=== PATIENT | male | born 1960 | race Caucasian/White ===

== ENCOUNTER 2019-07-08 09:13 | Outpatient (CLI) | payer OTHER, SELFPAY ==
--- NOTE | ~2019-07-08 | XR_ITS ---
EXAMINATION: XR shoulder RT min 2V, XR humerus RT EXAM DATE: 07/08/2019 09:46 INDICATION: No known recent injury provided at this time. Pain of the right shoulder, humerus. TECHNIQUE: The following right shoulder projections obtained: frontal projection with internal rotati on, frontal projection with external rotation, Grashey, and scapular Y view (4+ views). Orthogonal p rojections right humerus. There are no prior studies for comparison. FINDINGS: No evidence of right shoulder rotator cuff calcific tendinosis. There is mild glenohumer al, mild to moderate acromioclavicular joint primary osteoarthritis. There are no acute fractures or dislocations identified. There is no subcutaneous gas. The soft tissue is unremarkable. There are no radiopaque foreign bodies. Humerus unremarkable. IMPRESSION: Mild to moderate right acromioclavicular osteoarthritis. Reviewed, dictated and finalized at location A. CONSULTANT IMPRESSION: Mild to moderate right acromioclavicular osteoarthritis.
== END 2019-07-08 09:14 | disposition home or self-care (01) ==
LOC: CHSIMG 09:14
PROVIDERS: PCP Internal Medicine; Visit Provider Internal Medicine
DX: M79.621 Pain in right upper arm (principal); M25.511 Pain in right shoulder
CPT/HCPCS: 73030; 73060

== ENCOUNTER 2019-07-14 07:40 | Outpatient (RCR) | payer OTHER, SELFPAY ==
--- NOTE | 2019-07-14 08:15 | PTOPEVAL ---
Thank you for referring this patient to [facility]. Please review, sign, date and return this plan of care [facility]. I agree with and certify that the following plan of care is medically necessary. Referring Physician Date Admitting Provider: Attending Provider: Abdulaziz Osborne MD Referring Provider: *PT Outpatient Evaluation Start: 07/14/19 07:05 Freq: Status: Active Protocol: Document 07/14/19 07:05 Bean (Rec: 07/14/19 08:00 Bean [id number]) Therapy Assessment Status Assessment Status Assessment Status Evaluation Evaluation Information Problem Diagnosis R shoulder pain Onset 07/05/19 Subjective Information patient reports he has pain in Query Text:As Reported By Patient/ the R shoulder. he reports he Family has increased pain mostly with reaching activities away from his body. he reports the pain is mostly located to the R deltoid area. he reports the greatest pain with reaching out to his side, above his head, and behind his back. he reports the pain will be a quick burning type pain and then it will go away. he reports pain less than 30 seconds this date. he reports the pain has been going on for several weeks. he reports the pain has really been affecting his ability to sleep and get to sleep. Prior Level of Function Comments Additional Prior Level of Function pt reports he has been having Comments pain for 3-4 weeks. he reports he is retired from the [employer] [place]. 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 Pain Assessment Timing of Pain Assessment Timing of Pain Assessment Assessment Pain Scale Pain Scale Used Numeric (1 - 10) Self Report Pain Assessment Right Shoulder(s) Reported Pain Level 0 Pain Description Burning,Sharp Pain Frequency Acute,Intermittent Current Pain Intensity 0 Lowest Pain Intensity 0 Greatest Pain Intensity 5 Pain Aggravating Factors Lifting,Prolonged Position, Other Pain Aggravating Factors Other Pain Aggravating Factors sleeping Pain Score Pain Score 0: Self Report Upper Extremity Range
--- NOTE | 2019-08-07 17:06 | PCPTNOTE ---
08/07/19 - patient called and cancelled therapy visit this date. JTF
== END 2019-08-14 17:00 | disposition home or self-care (01) ==
LOC: CHSPT 07:40
PROVIDERS: PCP Internal Medicine; Visit Provider Internal Medicine
DX: M25.511 Pain in right shoulder (principal)
CPT/HCPCS: 97014; 97110; 97161; G0283

== ENCOUNTER 2019-07-16 21:18 | Inpatient (IN) | payer OTHER, SELFPAY ==
--- NOTE | ~2019-07-16 | XR_ITS ---
EXAMINATION: XR chest 2V DATE: 07/16/2019 21:53 INDICATION: Generalized chest tightness TECHNIQUE: PA and lateral views of the chest are obtained. COMPARISON: 02/18/2015 FINDINGS: The lungs are free of acute opacities. There is chronic scarring in the right midlung zone. There are also chronic reticular opacities, consistent with chronic interstitial lung disease. There is no pleural effusion or pneumothorax. The cardiomediastinal silhouette is normal. There is mild th oracic spondylosis. Cholecystectomy clips are noted in the right upper quadrant. IMPRESSION: 1. No acute cardiopulmonary abnormality. Reviewed, dictated and finalized at location A. ERCIAL TRAILER TRUCK DRIVER
[2019-07-16 21:18] VITALS: BP 181/93; PULSE 114; RESP 18; TEMP 36.7; O2SAT 94
--- NOTE | 2019-07-16 21:24 | ECG_ITS ---
Measurements Intervals [place] Rate: 102 P: [place]: 0 QRS: 37 QRSD: 82 T: 3 QT: 322 QTc: 420 Interpretive Statements ATRIAL FIBRILLATION WITH RAPID VENTRICULAR RESPONSE RSR' IN V1 OR V2, CONSIDER RIGHT VENTRICULAR HYPERTROPHY OR RIGHT VCD BORDERLINE ST-T WAVE ABNORMALITY- INFERIOR LEADS BASELINE ARTIFACT- I, II, III, AVR, AVL, AVF, V1 ABNORMAL ECG Electronically Signed On 07-17-2019 7:07:35 PRODUCTION COOK by Cash Stafford D.O.
--- NOTE | 2019-07-16 21:26 | ED.CHESTPAIN ---
HPI - Chest Pain General Chief Complaint: Chest Pain Stated Complaint: chest pain Time Seen by Provider: 07/16/19 21:26 Source: patient and RN notes reviewed Mode of arrival: ambulatory Limitations: no limitations History of Present Illness MD complaint: chest discomfort Pertinent past history: coronary artery disease Onset (ago): week(s) (2) Timing of current episode: episodic Prior episodes: Yes Onset: during rest Pain location: substernal Pain radiation: none Severity: moderate Quality: burning Relieving factors: nothing Exacerbating factors: nothing Treatment prior to arrival: aspirin Risk Factors Coronary artery disease risk factors: family history of CAD before age 50 Related Data Home Medications Medication Instructions Recorded Confirmed bupropion HCl 150 mg PO BID 07/16/19 07/16/19 esomeprazole magnesium 40 mg PO DAILY 07/16/19 07/16/19 methylprednisolone PO USEASDIRECTD 07/16/19 metoprolol succinate 25 mg PO DAILY 07/16/19 07/16/19 simvastatin 40 mg PO DAILY 07/16/19 07/16/19 Allergies Allergy/AdvReac Type Severity Reaction Status Date / Time Penicillins Allergy Rash Verified 07/16/19 21:45 Review of Systems Cardiovascular: Cardiovascular: Denies diaphoresis, Reports rapid heart rate, Denies radiating jaw, neck or arm pain and Denies dyspnea Gastrointestinal: Gastrointestinal: Denies nausea and Denies vomiting Musculoskeletal: Musculoskeletal: Reports no additional musculoskeletal complaints PMFSH Past Medical History Medical History (Updated 07/16/19 @ 22:14 by Umberto Lainez MD) Coronary artery disease Surgical History Surgical History (Updated 07/16/19 @ 22:04 by Umberto Lainez MD) History of cholecystectomy History of coronary artery stent placement Family History Family History (Updated 07/16/19 @ 22:04 by Umberto Lainez MD) Father Acute myocardial infarction, Onset Age: 47 Social History Social History (Updated 07/16/19 @ 22:06 by Umberto Lainez MD) Smoking packs per day: 1 Smoking cigarettes per day: 20.0 Smoking status: Current every day smoker Tobacco type: cigarettes Alcohol intake: current Alcohol use details: Occaisional Substance use: never Gender identity (if verbalized by the patient): Male Exam Const: General: healthy appearing, no acute distress and alert Nutritional Appearance: well nourished Orientation/consciousness: patient oriented x3 HENMT: Head: normal to inspection Ears: external ears normal Eyes: Conjunctivae: conjunctivae normal Pupils: Equal, round and reactive pupils present EOM: EOMs intact bilaterally Neck: Neck: normal visual inspection Resp: Effort & Inspection: normal respiratory effort Auscultation: clear to auscultation bilaterally Cardio: Rate: tachycardic Rhythm: abnormal rhythm irregularly irregular GI: Auscultation: normal bowel sounds Back/Spine/Pelvis: Cervical Spine: cervical ROM normal Thoracic/Lumbar Spine: thoraco-lumbar ROM normal Skin: General skin exam: normal color Rashes: no rashes Neuro: General: patient oriented x3, moves all extremities and no focal motor deficits Speech: normal speech Extrem: General: normal to inspection and no clubbing, cyanosis or edema Psych: Appearance: grossly normal and well kempt Mental Status: mental status grossly normal Affect: normal affect Attitude: cooperative Thought content: Yes Normal thought content present Course Course Emergency Course: Patient given 20 mg of Cardizem IV push. Heart rate dropped into the 80s. Remained atrial fibrillation. Started on Cardizem drip at 10 mg an hour. Vital Signs Vital signs: Vital Signs Temperature 36.7 C 07/16/19 21:18 Pulse Rate 114 H 07/16/19 21:18 Respiratory Rate 18 07/16/19 21:18 Blood Pressure 181/93 H 07/16/19 21:18 Pulse Oximetry 94 07/16/19 21:18 Temperature 36.7 C 07/16/19 21:18 Pulse Rate 114 H 07/16/19 21:18 Respiratory Rate 18 07/16/19 21:18 Blood P
[2019-07-16 21:43] LABS: Basophils Absolute Auto 0.09 K/mm3 (0.00-0.10); Basophils Percent Auto 0.5 % (0.0-1.0); Eosinophils Absolute Auto 0.11 K/mm3 (0.02-0.50); Eosinophils Percent Auto 0.6 % (1.0-6.0); Hematocrit 44.5 % (40.0-54.0); Hemoglobin 15.1 g/dL (14.0-18.0); Immature Granulocyte Absolute 0.14 K/mm3 (0.00-0.00); Immature Granulocyte Percent A 0.8 % (0.0-0.0); Lymphocytes Absolute Auto 4.34 K/mm3 (1.10-4.50); Lymphocytes Percent Auto 23.3 % (18.0-42.0); Mean Corpuscular HGB Conc 33.9 g/dL (32.0-36.0); Mean Corpuscular Hemoglobin 31.9 pg (27.0-31.0); Mean Corpuscular Volume 94.1 fL (78.0-102.0); Mean Platelet Volume 9.7 fl (8.7-11.0); Monocytes Absolute Auto 1.06 K/mm3 (0.10-0.90); Monocytes Percent Auto 5.7 % (2.0-11.0); Neutrophils Absolute Auto 12.9 K/mm3 (1.7-7.2); Neutrophils Percent Auto 69.1 % (50.0-70.0); Platelet Count Result 330 K/mm3 (150-420); Red Blood Count 4.73 M/mm3 (4.70-6.10); Red Cell Distribution Width 12.9 % (11.6-14.4); White Blood Count 18.6 K/mm3 (4.8-10.8)
--- NOTE | 2019-07-16 21:51 | PC.NURSE ---
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
[2019-07-16 21:54] LABS: Prothrombin Time 10.2 Seconds (9.64-11.0)
[2019-07-16 21:59] LABS: Alanine Aminotransferase 38 U/L (16-63); Albumin Level 4.3 g/dL (3.4-5.0); Alkaline Phosphatase 65 U/L (46-116); Anion Gap 18.5 mmol/L (7-16); Aspartate Amino Transferase 27 U/L (15-37); Bilirubin,Total 0.2 mg/dL (0.00-1.00); Blood Urea Nitrogen 21 mg/dL (7-18); Calcium 8.8 mg/dL (8.5-10.1); Carbon Dioxide 23 mmol/L (21-32); Chloride 107 mmol/L (98-108); Estimated CRCL calculation 70 ml/min; Estimated Glomerular Filt Rate > 60; Glucose 107 mg/dL (70-99); Osmolality Calculated 303 mOsm/kg (285-295); Potassium 3.5 mmol/L (3.5-5.1); Sodium 145 mmol/L (136-145)
[2019-07-16 22:00] LABS: Troponin I < 0.02 ng/mL (0.00-0.056)
--- NOTE | 2019-07-16 22:10 | PC.NURSE ---
Verbal order Dr Lainez Diltiazem gtt at 10mg/hr. Order entered as 1 mg/hr. Dr Lainez aware, states he will change the order.
[2019-07-16 22:13] VITALS: BP 134/62; PULSE 92; RESP 18; O2SAT 95
--- NOTE | 2019-07-16 22:34 | PC.NURSE ---
Pt states chest burning remains 06/13. Diltiazem gtt continues to infuse at 10mg/hr. HR 86 afib, BP 134/72.
--- NOTE | 2019-07-16 22:38 | PC.NURSE ---
Room assignment received from 2nd floor charge nurse. Will call back at 2300 to give report to oncoming night RN.
[2019-07-16 22:39] VITALS: BP 134/72; PULSE 89; RESP 18; O2SAT 93
[2019-07-16 22:40] LABS: Thyroid Stimulating Hormone 4.04 uIU/mL (0.36-3.74)
[2019-07-16 22:43] LABS: Magnesium 1.6 mg/dL (1.8-2.4)
[2019-07-16 23:02] VITALS: BP 122/71; PULSE 84; RESP 18; O2SAT 95
[2019-07-16 23:54] VITALS: BMI 29.2
[2019-07-17 00:03] VITALS: BP 135/62; PULSE 75; RESP 18; TEMP 36.4; O2SAT 94
[2019-07-17 04:07] VITALS: BP 104/51; PULSE 76; RESP 16; TEMP 36.7; O2SAT 95
[2019-07-17 07:55] VITALS: BP 141/74; PULSE 72; PULSE 80; RESP 18; TEMP 36.3; O2SAT 98
[2019-07-17] MEDS: NICOTINE (*PBKC) 21 MG PATCH 1 PATCH TRANSDERM (09:20)
[2019-07-17 09:21] VITALS: PULSE 86
[2019-07-17] MEDS: PANTOPRAZOLE 40 MG TABLET PO (09:21)
[2019-07-17] MEDS: METOPROLOL SUCCINATE EXT REL 25 MG TABCR PO (09:21)
[2019-07-17] MEDS: MAGNESIUM OXIDE 400 MG TABLET PO (09:22)
[2019-07-17] MEDS: APIXABAN 2.5 MG TABLET 5 MG PO (09:22)
[2019-07-17] MEDS: SIMVASTATIN 10 MG TABLET 40 MG PO (09:22)
--- NOTE | 2019-07-17 11:30 | PM.IMHP ---
H&P: HPI History of Present Illness Chief complaint: chest pain Narrative: Rui Sanders is a 59 year old male that presented to the ED yesterday with complaints of chest pain and burning sensation in his throat. patient has a past medical history of CAD, COPD, hyperlipidemia and GERD. According to patient for the past couple weeks he has been having a intermittent burning sensation in the center of his chest. Patient does have a history of acid reflux but noted that it did not feel like his acid reflux. Patient also noted that is seen to flare up with movement. According to him yesterday the burning sensation worsened. He was sitting up in his bed when it occurred. He noted that he had to take a pillow and pushing against his chest and lean over the bed in the bed the position to relieve the pain. His discovered him and brought him to the emergency room. While in the emergency room a EKG was completed it showed that he was in AFib with RVR. this patient does not have a history of AFib. Patient was started on Cardizem in the ED and Eliquis his vital signs were 36.3, 72, 18, 98% on room air and 141/74. today patient's AFib is rates 70 and 90. Patient will discharge home today with Cardizem 100 mg p.o. daily and Eliquis. Dr. Montes De Oca his histology teacher was notified I will fax patient's H&P and discharge with EKG to his office. He does have an appointment with Dr. Montes De Oca tomorrow. Patient noted that chest pains and burning sensation in his chest has resolved since admission. Patient able to tolerate all meals , slept well and ambulate at baseline. Patient denies SOB, CP, palpitation, extremity numbness, lightheadness, dizziness, constipation, diarrhea, or chills or fever. Patient agree that they are ready for discharge and discharge plan. Review of Systems Constitutional: Constitutional: Reports no additional constitutional complaints, Denies fatigue, Denies headache(s) and Denies weakness Cardiovascular: Cardiovascular: Denies chest pain, Denies chest pain at rest, Denies chest pain with activity, Denies lightheadedness, Denies dyspnea on exertion and Denies orthopnea Respiratory: Respiratory: Reports no additional respiratory complaints, Denies chest congestion, Denies cough, Denies pain on inspiration, Denies dyspnea and Denies dyspnea on exertion Gastrointestinal: Gastrointestinal: Reports no additional gastrointestinal complaints, Denies dyspepsia, Denies heartburn, Denies diarrhea, Denies nausea and Denies vomiting Genitourinary: Genitourinary: Reports no additional male genitourinary complaints Integumentary/Breasts: Skin/Breast: Reports system reviewed and no additional complaints, except as docu Neurologic: Reports system reviewed and no additional complaints, except as documented [facility] Past Medical History Medical History (Updated 07/17/19 @ 11:45 by STEVE Church) COPD (chronic obstructive pulmonary disease) Coronary artery disease Tobacco dependence Surgical History Surgical History (Updated 07/16/19 @ 22:04 by Umberto Lainez MD) History of cholecystectomy History of coronary artery stent placement Family History Family History (Updated 07/17/19 @ 00:04 by Shea Flores RN) Father Acute myocardial infarction, Onset Age: 47 Diabetes mellitus Social History Social History (Updated 07/16/19 @ 22:06 by Umberto Lainez MD) Smoking packs per day: 1 Smoking cigarettes per day: 20.0 Years smoked: 40 Smoking pack-years: 40.00 Smoking status: Heavy tobacco smoker Tobacco type: cigarettes Second hand tobacco smoke exposure: No Alcohol intake: current Drinks per week: 14 Alcohol use details: Occaisional Substance use: never Substance use type: does not use Gender identity (if verbalized by the patient): Male Spiritual care concerns: No Agree to blood products: No Meds Home Medications and Allergies Home Medications Medication Instructions Record
--- NOTE | 2019-07-17 11:51 | PM.DS ---
DS: Diagnosis Discharge Diagnosis (1) Atrial fibrillation: Qualifiers: Atrial fibrillation type: paroxysmal Qualified Code(s): I48.0 - Paroxysmal atrial fibrillation Code(s): I48.91 - Unspecified atrial fibrillation Status: Acute Assessment and Plan: newly diagnosed AFib - while in ER patient display AFib with RVR controlled AFib -patient will discharge with Cardizem 180 mg daily and Eliquis - patient educated on increased risk for clots and signs and symptoms PE - will fax patient's hospitalization records to Dr. Montes De Oca at [phone] (2) GERD (gastroesophageal reflux disease): Code(s): K21.9 - Gastro-esophageal reflux disease without esophagitis Status: Acute Assessment and Plan: continue omeprazole (3) Coronary artery disease: Code(s): I25.10 - Atherosclerotic heart disease of [place] coronary artery without angina pectoris Status: Acute Assessment and Plan: - follow-up with Dr. Montes De Oca tomorrow - continue metoprolol - continue statins (4) Hyperlipidemia: Code(s): E78.5 - Hyperlipidemia, unspecified Status: Acute Assessment and Plan: - continue statins - follow-up with PCP (5) COPD (chronic obstructive pulmonary disease): Code(s): J44.9 - Chronic obstructive pulmonary disease, unspecified Status: Acute Assessment and Plan: - patient is currently smoking - patient primary care physician has prescribed him inhalers per patient he does not need any of the inhalers because he does not have shortness of breath. - patient educated rescue inhaler and use of when needed. (6) Tobacco dependence: Code(s): F17.200 - Nicotine dependence, unspecified, uncomplicated Status: Acute Assessment and Plan: patient educated on smoking cessation - patient did receive nicotine patch as an inpatient - patient refuses to use patches as outpatient DS: Summary Hospital Course Hospital Course: Rui Sanders is a 59 year old male that presented to the ED yesterday with complaints of chest pain and burning sensation in his throat. patient has a past medical history of CAD, COPD, hyperlipidemia and GERD. According to patient for the past couple weeks he has been having a intermittent burning sensation in the center of his chest. Patient does have a history of acid reflux but noted that it did not feel like his acid reflux. Patient also noted that is seen to flare up with movement. According to him yesterday the burning sensation worsened. He was sitting up in his bed when it occurred. He noted that he had to take a pillow and pushing against his chest and lean over the bed in the bed the position to relieve the pain. His discovered him and brought him to the emergency room. While in the emergency room a EKG was completed it showed that he was in AFib with RVR. this patient does not have a history of AFib. Patient was started on Cardizem in the ED and Eliquis his vital signs were 36.3, 72, 18, 98% on room air and 141/74. today patient's AFib is rates 70 and 90. Patient will discharge home today with Cardizem 100 mg p.o. daily and Eliquis. Dr. Montes De Oca his technical marketing engineer was notified I will fax patient's H&P and discharge with EKG to his office. He does have an appointment with Dr. Montes De Oca tomorrow. Patient noted that chest pains and burning sensation in his chest has resolved since admission. Patient able to tolerate all meals , slept well and ambulate at baseline. Patient denies SOB, CP, palpitation, extremity numbness, lightheadness, dizziness, constipation, diarrhea, or chills or fever. Patient agree that they are ready for discharge and discharge plan. Time spent discussing smoking cessation with patient: 3 to 10 minutes Time Spent with Patient Time attestation: Total time spent providing and/or coordinating discharge services:60 Exam Const: General: cooperative, healthy appearing, comfortable and no acu
--- NOTE | 2019-07-21 13:37 | PC.NURSE ---
Discharge call back [phone] number no longer inservice.
== END 2019-07-17 11:45 | disposition home or self-care (01) | DRG 308 ==
LOC: CHSED 22:14 → CHS2ND 22:40
PROVIDERS: Admitting Provider Emergency Medicine; Emergency Provider Emergency Medicine; PCP Internal Medicine; Visit Provider Emergency Medicine
DX: I48.0 Paroxysmal atrial fibrillation (principal); J18.9 Pneumonia, unspecified organism; J44.1 Chronic obstructive pulmonary disease with (acute) exacerbation; K21.9 Gastro-esophageal reflux disease without esophagitis; I25.10 Atherosclerotic heart disease of native coronary artery without angina pectoris; E78.5 Hyperlipidemia, unspecified; F17.210 Nicotine dependence, cigarettes, uncomplicated
CPT/HCPCS: 36415; 71046; 80053; 83735; 84443; 84484; 85025; 85610; 93005; 96365; 96366; 99284; 99285; A9270

== ENCOUNTER 2019-10-31 08:14 | Outpatient (CLI) | payer OTHER, SELFPAY ==
--- NOTE | ~2019-10-31 | XR_ITS ---
EXAMINATION: XR barium swallow DATE: 10/31/2019 13:58 INDICATION: Dysphagia. Gastroesophageal reflux disease. TECHNIQUE: The patient drank thick barium, gas-producing crystals, and thin barium. Fluoroscopic spot radiographs of the hypopharynx and esophagus were obtained. A total of 1253 fluoroscopic images were recorded. Fluoroscopy exposure time was 1.8 minutes. COMPARISON: None. FINDINGS: The pharynx is symmetric and without evidence of mass lesion or mucosal irregularity. The e sophagus is normal without mass or stricture. Esophageal motility is normal. There is no hiatal herni a. There was no gastroesophageal reflux with provocative maneuvers. IMPRESSION: 1. Normal esophagram. Reviewed, dictated and finalized at location A. IMPRESSION: 1. Normal esophagram.
== END 2019-10-31 08:15 | disposition home or self-care (01) ==
PROVIDERS: PCP Internal Medicine; Visit Provider Internal Medicine
DX: R13.10 Dysphagia, unspecified (principal)
CPT/HCPCS: 74220

== ENCOUNTER 2020-01-06 08:20 | Outpatient (CLI) | payer OTHER, SELFPAY ==
--- NOTE | ~2020-01-06 | XR_ITS ---
EXAMINATION: XR chest 2V DATE: 01/06/2020 08:46 INDICATION: Chronic cough TECHNIQUE: PA and lateral views of the chest were obtained. COMPARISON: Chest radiograph dated 07/16/[address] dated 05/14/2019 FINDINGS: Hyperexpansion of lungs with architectural distortion increased lucency at the apices consistent with emphysema better appreciated on prior CT. Unchanged linear discoid atelectasis/scarring along the ri ght minor fissure. No significant change in mild peripheral reticular opacities most prominent at the right upper and right lower lung zones likely related to chronic interstitial lung disease. No new a irspace opacities, pleural effusion or pneumothorax. The cardiomediastinal silhouette is normal. Calc ified right hilar and mediastinal lymph nodes consistent with old granulomatous disease. Cholecystect gregory clips in the upper abdomen. Mild scattered degenerative skeletal changes. IMPRESSION: 1. Emphysema and mild chronic interstitial fibrosis. No acute cardiopulmonary disease. Reviewed, dictated and finalized at location A. IMPRESSION: 1. Emphysema and mild chronic interstitial fibrosis. No acute cardiopulmonary d isease.
== END 2020-01-06 08:21 | disposition home or self-care (01) ==
PROVIDERS: PCP Internal Medicine; Visit Provider Internal Medicine Pulmonary Disease
DX: J44.9 Chronic obstructive pulmonary disease, unspecified (principal); J84.112 Idiopathic pulmonary fibrosis
CPT/HCPCS: 71046; 94060; 94726; 94729

== ENCOUNTER 2020-05-20 10:45 | Outpatient (CLI) | payer OTHER, SELFPAY ==
[2020-05-21 20:00] LABS: SARS-CoV-2 RNA PCR Negative
== END 2020-05-20 10:46 | disposition home or self-care (01) ==
LOC: CHSLAB 10:46
PROVIDERS: PCP Internal Medicine; Visit Provider Internal Medicine
DX: Z20.828 Contact with and (suspected) exposure to other viral communicable diseases (principal)
CPT/HCPCS: 87635; C9803; U0003

== ENCOUNTER 2020-11-15 06:59 | Outpatient (CLI) | payer OTHER, SELFPAY ==
[2020-11-15 08:25] LABS: Alanine Aminotransferase 39 U/L (16-63); Albumin Level 3.7 g/dL (3.4-5.0); Alkaline Phosphatase 84 U/L (46-116); Anion Gap 12 mmol/L (8-16); Aspartate Amino Transferase 24 U/L (15-37); Bilirubin,Total 0.4 mg/dL (0.00-1.00); Blood Urea Nitrogen 16 mg/dL (7-18); Calcium 9.5 mg/dL (8.5-10.1); Carbon Dioxide 26 mmol/L (21-32); Chloride 105 mmol/L (98-108); Cholesterol 128 mg/dL (0-200); Estimated Glomerular Filt Rate > 60; Glucose 108 mg/dL (70-99); HDL Direct 24 mg/dL (40-60); LDL Cholesterol Calculated 68 mg/dL (<130); Osmolality Calculated 298 mOsm/kg (285-295); Potassium 3.3 mmol/L (3.5-5.1); Sodium 143 mmol/L (136-145); Total Protein 6.7 g/dL (6.4-8.2); Triglycerides 179 mg/dL (0-150)
== END 2020-11-15 07:00 | disposition home or self-care (01) ==
PROVIDERS: PCP Internal Medicine
DX: E78.00 Pure hypercholesterolemia, unspecified (principal); J44.9 Chronic obstructive pulmonary disease, unspecified; J84.10 Pulmonary fibrosis, unspecified; R91.1 Solitary pulmonary nodule; Z72.0 Tobacco use
CPT/HCPCS: 36415; 80053; 80061

== ENCOUNTER 2020-11-30 09:50 | Outpatient (CLI) | payer OTHER, SELFPAY ==
--- NOTE | 2020-12-01 14:41 | WPDPFTINT ---
PFT Procedure Performed PFT Procedure Performed Spirometry with Pre/Post Bronchodilator Plethysmography (Lung Vol) Diffusing Cap (DLCO) Flow Vol Loop PFT Interpretation DOS: 11/30/2020 REQUESTING: Karli Aguilera MD REASON FOR TESTING: COPD, Pulmonary fibrosis PULMONARY FUNCTION TESTS Results are reliable and reproducible. Spirometry: FEV1 is 87% predicted, 2.65 L, normal. FVC is 107% predicted, normal. The FEV1/FVC ratio is reduced 64% predicted. The [id number]% is 38% predicted with a 21% increase after bronchodilator administration. There is no increase in the FEV1 or FVC after bronchodilator administration. Lung volumes: Total lung capacity is 94% predicted, normal. Residual volume is 66% predicted. RV/TLC is 26%, no air trapping. Airway resistance is normal. Diffusion: DLCO 53% predicted, moderately decreased. Flow volume loop: Mild scooping of expiratory limb. IMPRESSION: This full pulmonary function test shows a mild obstructive ventilatory impairment without a significant response to bronchodilator. Normal lung volumes. Moderate diffusion impairment. There is mild scooping of the expiratory limb which is consistent with an obstructive process. The lack of response to bronchodilators should not preclude use if clinically indicated. Cortney Oropeza MD
== END 2020-11-30 09:51 | disposition home or self-care (01) ==
LOC: CHSCARD 09:55
PROVIDERS: PCP Internal Medicine
DX: J44.9 Chronic obstructive pulmonary disease, unspecified (principal)
CPT/HCPCS: 94060; 94726; 94729

== ENCOUNTER 2020-12-13 08:07 | Outpatient (CLI) | payer OTHER, SELFPAY ==
--- NOTE | ~2020-12-13 | CT_ITS ---
EXAMINATION: CT diagnostic chest wo con EXAM DATE: 12/13/2020 08:28 INDICATION: Interstitial lung disease, COPD, chronic cough. TECHNIQUE: Spiral CT of the chest without contrast. Axial, coronal and sagittal images of the chest were reviewed. Coronal maximum intensity pixel images of chest reviewed. The dose-length product ( DLP) for this examination was 333.63 mGy-cm. The exposure was tailored according to patient size (au to mA exposure control), and iterative reconstruction (ASIR) was used as additional dose reduction te chnique. Comparison is made to prior examination from 05/14/2019. FINDINGS: There is a thin right upper lobe pleural-based opacity abutting the minor fissure, region measuring about 2.7 cm in diameter by 6 mm in thickness, with evidence of volume loss and spiculation s, stable and therefore likely scarring. There are no suspicious lung opacities. There is upper lobe peripheral predominant interstitial lung disease, some interspersed groundglass opacities and mild ho neycombing, stable or with minimal progression. Some emphysema and hyperinflation. There are no pleu ral or pericardial effusions. Tracheobronchial tree is patent. Right lower paratracheal lymph nod e measuring 1.5 x 0.9 cm unchanged, probably reactive. There is no pneumothorax. Heart normal in s ize. There is moderate coronary arterial calcification, arterial sclerosis. There are cholecystect gregory clips. There is mild to moderate thoracic spondylosis without osteoblastic or osteolytic lesions identified. IMPRESSION: 1. Moderate interstitial lung disease, stable or with minimal progression. 2. Stable pleural-based right upper lobe opacity likely postinfectious. 3. Emphysema and hyperinflation. Reviewed, dictated and finalized at location A.
== END 2020-12-13 08:08 | disposition home or self-care (01) ==
LOC: CHSIMG 08:09
PROVIDERS: PCP Internal Medicine; Visit Provider Internal Medicine Pulmonary Disease
DX: J44.9 Chronic obstructive pulmonary disease, unspecified (principal); R91.1 Solitary pulmonary nodule
CPT/HCPCS: 71250

== ENCOUNTER 2021-03-17 13:15 | Outpatient (CLI) | payer OTHER, SELFPAY ==
[2021-03-17 13:40] LABS: Basophils Absolute Auto 0.09 K/mm3 (0.00-0.10); Basophils Percent Auto 0.7 % (0.0-1.0); Eosinophils Absolute Auto 0.18 K/mm3 (0.02-0.50); Eosinophils Percent Auto 1.5 % (1.0-6.0); Hematocrit 40.7 % (40.0-54.0); Immature Granulocyte Absolute 0.05 K/mm3 (0.00-0.00); Immature Granulocyte Percent A 0.4 % (0.0-0.0); Lymphocytes Absolute Auto 3.43 K/mm3 (1.10-4.50); Lymphocytes Percent Auto 28.2 % (18.0-42.0); Mean Corpuscular HGB Conc 34.4 g/dL (32.0-36.0); Mean Corpuscular Hemoglobin 30.9 pg (27.0-31.0); Mean Corpuscular Volume 89.8 fL (78.0-102.0); Mean Platelet Volume 10.2 fl (8.7-11.0); Monocytes Absolute Auto 0.79 K/mm3 (0.10-0.90); Monocytes Percent Auto 6.5 % (2.0-11.0); Neutrophils Absolute Auto 7.6 K/mm3 (1.7-7.2); Neutrophils Percent Auto 62.7 % (50.0-70.0); Platelet Count Result 320 K/mm3 (150-420); Red Blood Count 4.53 M/mm3 (4.70-6.10); Red Cell Distribution Width 12.7 % (11.6-14.4); White Blood Count 12.2 K/mm3 (4.8-10.8)
--- NOTE | 2021-03-17 13:45 | ECG_ITS ---
Measurements Intervals [place] Rate: 67 P: 60 SD: 176 QRS: 73 QRSD: 138 T: 52 QT: 419 QTc: 444 Interpretive Statements SINUS RHYTHM RIGHT BUNDLE BRANCH BLOCK ABNORMAL ECG Electronically Signed On 03-17-2021 13:44:45 CDT by Cash Stafford D.O.
[2021-03-17 13:55] LABS: Appearance Urine Clear (Clear); Bilirubin Urine Negative (Negative); Color Urine Light Yellow (Yellow); Glucose Urine UA Negative (Negative); Ketones Urine Negative (Negative); Leukocyte Esterase Ur Negative (Negative); Nitrate Urine Negative (Negative); Protein Urine Negative (Negative); Urobilinogen Urine 0.2 mg/dL (0.2-1.0)
[2021-03-17 14:02] LABS: Add Urine Microscopic? YES; Blood Urine Trace-Intact (Negative); RBC Urine 0-2 /hpf (0-2); WBC Urine None seen /hpf (0-3)
[2021-03-17 14:03] LABS: Bacteria Urine None seen /hpf; Squamous Epithelial Cell Urine Rare /hpf (Few)
[2021-03-17 14:08] LABS: Prostate Specific Antigen 0.9 ng/mL (< OR = 4.0); Thyroid Stimulating Hormone 2.49 uIU/mL (0.36-3.74); Troponin I 5.5 ng/L (0.00-60.4)
== END 2021-03-17 13:16 | disposition home or self-care (01) ==
LOC: CHSLAB 13:17
PROVIDERS: PCP Internal Medicine; Visit Provider Nuclear Medicine Nuclear Cardiology
DX: R07.9 Chest pain, unspecified (principal); Z00.00 Encounter for general adult medical examination without abnormal findings; Z12.5 Encounter for screening for malignant neoplasm of prostate
CPT/HCPCS: 36415; 81001; 84153; 84443; 84484; 85025; 93005; G0103

== ENCOUNTER 2021-03-22 07:09 | Outpatient (CLI) | payer OTHER, SELFPAY ==
[2021-03-22 07:26] LABS: Basophils Absolute Auto 0.12 K/mm3 (0.00-0.10); Basophils Percent Auto 0.9 % (0.0-1.0); Eosinophils Absolute Auto 0.19 K/mm3 (0.02-0.50); Eosinophils Percent Auto 1.4 % (1.0-6.0); Hemoglobin 13.3 g/dL (14.0-18.0); Immature Granulocyte Absolute 0.05 K/mm3 (0.00-0.00); Immature Granulocyte Percent A 0.4 % (0.0-0.0); Lymphocytes Absolute Auto 2.35 K/mm3 (1.10-4.50); Lymphocytes Percent Auto 17.5 % (18.0-42.0); Mean Corpuscular HGB Conc 34.1 g/dL (32.0-36.0); Mean Corpuscular Hemoglobin 31.3 pg (27.0-31.0); Mean Corpuscular Volume 91.8 fL (78.0-102.0); Monocytes Absolute Auto 1.06 K/mm3 (0.10-0.90); Monocytes Percent Auto 7.9 % (2.0-11.0); Neutrophils Absolute Auto 9.6 K/mm3 (1.7-7.2); Neutrophils Percent Auto 71.9 % (50.0-70.0); Platelet Count Result 276 K/mm3 (150-420); Red Blood Count 4.25 M/mm3 (4.70-6.10); Red Cell Distribution Width 12.7 % (11.6-14.4); White Blood Count 13.4 K/mm3 (4.8-10.8)
[2021-03-22 07:56] LABS: Anion Gap 13 mmol/L (8-16); Blood Urea Nitrogen 15 mg/dL (7-18); Carbon Dioxide 26 mmol/L (21-32); Chloride 103 mmol/L (98-108); Estimated Glomerular Filt Rate > 60; Glucose 118 mg/dL (70-99); Osmolality Calculated 295 mOsm/kg (285-295); Potassium 4.1 mmol/L (3.5-5.1); Sodium 142 mmol/L (136-145)
== END 2021-03-22 07:10 | disposition home or self-care (01) ==
PROVIDERS: PCP Internal Medicine
DX: E87.6 Hypokalemia (principal); E83.42 Hypomagnesemia; D72.829 Elevated white blood cell count, unspecified
CPT/HCPCS: 36415; 80048; 83735; 85025

== ENCOUNTER 2021-06-01 14:29 | Outpatient (CLI) | payer OTHER, SELFPAY ==
[2021-06-01 15:26] LABS: Influenza A QL RT-PCR Negative (Negative); Influenza B QL RT-PCR Negative (Negative); SARS-CoV-2 RNA PCR Negative (Negative)
== END 2021-06-01 14:30 | disposition home or self-care (01) ==
LOC: CHSLAB 14:32
PROVIDERS: PCP Internal Medicine; Visit Provider Internal Medicine
DX: J06.9 Acute upper respiratory infection, unspecified (principal); Z20.822 Contact with and (suspected) exposure to COVID-19
CPT/HCPCS: 87502; C9803; U0003; U0005

== ENCOUNTER 2021-06-09 10:34 | Outpatient (CLI) | payer OTHER, SELFPAY ==
--- NOTE | 2021-06-09 12:57 | WPDPFTINT ---
PFT Procedure Performed PFT Procedure Performed Spirometry with Pre/Post Bronchodilator Plethysmography (Lung Vol) Diffusing Cap (DLCO) Flow Vol Loop PFT Interpretation DOS:06/09/2021 REQUESTING: Dr Karli Aguilera REASON FOR TESTING: Shortness of breath; Prior PFT indicates the patient has pulmonary fibrosis and takes Ofev PULMONARY FUNCTION TESTS Results are reliable and reproducible. Spirometry: FEV1 prior to bronchodilator administration is 92% predicted, 2.79 L, normal. FVC is 110% predicted. The FEV1/FVC ratio is 66%, consistent with mild airflow obstruction. The JAC01-54% is decreased at 43% predicted. There is no change after bronchodilator. Lung volumes: Total lung capacity is 106% predicted, normal. There is no hyperinflation. Residual volume is 93% predicted, normal. The airway resistance is 117%. normal. Diffusion: DLCO is 51% predicted which is moderately decreased. This does not correct for alveolar volume. Flow volume loop: Normal. IMPRESSION: This pulmonary function study shows a mild decrease in FEV1% and moderate decrease in the IFH56-92% which is similar to a prior study 11/22/2020. There is no response to bronchodilator on this study. Normal lung volumes and airway resistance. The main abnormality on this study is a moderate decrease in the diffusion which does not correct for alveolar volume. Isolated decrease in diffusion can be seen in early interstitial lung disease, pulmonary vascular disease and anemia. Carboxyhemoglobin also decreases the DLCO. The patient has pulmonary fibrosis with stable diffusion impairment Compared to a prior study 11/30/2020, values are similar. The FEV1 was 87% predicted, now 92% predicted. FVC was 107%, now 110%. There was a decrease in the DCC41-34% at 38% predicted, and now the ESS22-43% is also low at 43%. On the prior study, there was a 21% increase in the UKJ48-36% and no increase in the small airways flows with bronchodilator. There is no change with bronchodilator on the current study. Total lung capacity was 94% now 106%. The DLCO was 53% now 51%, about the same. Cortney Oropeza MD
== END 2021-06-09 10:35 | disposition home or self-care (01) ==
PROVIDERS: PCP Internal Medicine; Visit Provider Internal Medicine Pulmonary Disease
DX: R06.02 Shortness of breath (principal)
CPT/HCPCS: 94060; 94726; 94729

== ENCOUNTER 2021-12-14 07:03 | Outpatient (CLI) | payer OTHER, SELFPAY ==
--- NOTE | ~2021-12-14 | CT_ITS ---
EXAMINATION: CT diagnostic chest wo con DATE: 12/14/2021 07:27 INDICATION: Solitary pulmonary nodule, interstitial lung disease TECHNIQUE: Computed tomography (CT) of the chest was performed without intravenous contrast. The dose -length product (DLP) was 385.00 mGy-cm. Automated exposure control and iterative reconstruction tech SMS G[employer] were employed. COMPARISON: 12/13/2020, 05/14/2019 FINDINGS: There is moderate emphysema. There are stable, widespread subpleural reticular and groundgl ass opacities with an upper lung zone predominance. There are is an area of chronic thickening of the minor fissure without significant change. Calcified pulmonary nodules and calcified right hilar and mediastinal lymph nodes are consistent with old granulomatous disease. No pleural effusion or pneumot horax. No pathologically enlarged thoracic lymph nodes are identified. The heart size is normal. The gallbladder is surgically absent. Punctate calcifications in an otherwise normal spleen likely repres ent healed granulomatous disease. There is mild thoracic spondylosis. IMPRESSION: 1. Chronic area of scarring involving the minor fissure without significant change. 2. Stable diffuse lung disease, consistent with combination of chronic emphysema and chronic intersti tial lung disease, UIP versus NSIP. Reviewed, dictated and finalized at location A. IMPRESSION: 1. Chronic area of scarring involving the minor fissure without significant chiki nge. 2. Stable diffuse lung disease, consistent with combination of chronic emphysem a and chronic interstitial lung disease, UIP versus NSIP.
[2021-12-14 07:36] LABS: Cholesterol 98 mg/dL (0-200); HDL Direct 29 mg/dL (40-60); LDL Cholesterol Calculated 49 mg/dL (<130); Triglycerides 100 mg/dL (0-150)
== END 2021-12-14 07:04 | disposition home or self-care (01) ==
LOC: CHSIMG 07:05
PROVIDERS: PCP Internal Medicine; Visit Provider Internal Medicine Pulmonary Disease
DX: R94.4 Abnormal results of kidney function studies (principal); J84.10 Pulmonary fibrosis, unspecified; E78.5 Hyperlipidemia, unspecified
CPT/HCPCS: 36415; 71250; 80061

== ENCOUNTER 2021-12-28 15:29 | Outpatient (CLI) | payer OTHER, SELFPAY ==
--- NOTE | 2021-12-28 15:35 | PC.NURSE ---
Pt to room 211 amb per self. A&Ox3. Oriented to room and plan of care. Consent signed. Pt has no questions or concerns. Oriented to room. Call baugh in reach.
[2021-12-28] MEDS: FAMOTIDINE 20 MG TABLET PO (15:48)
[2021-12-28] MEDS: diphenhydrAMINE HCl CAP 25 MG CAPSULE PO (15:48)
[2021-12-28] MEDS: BEBTELOVIMAB 175 MG/2 ML VIAL IV PUSH (15:48)
[2021-12-28] MEDS: ACETAMINOPHEN 325 MG TABLET 650 MG PO (15:48)
--- NOTE | 2021-12-28 16:28 | PC.NURSE ---
Patient tolerated medication well. No c/o side effects. Patient walked down to front door. ;
== END 2021-12-28 15:30 | disposition home or self-care (01) ==
LOC: CHSTREATRM 15:30
PROVIDERS: PCP Internal Medicine; Visit Provider Internal Medicine
DX: U07.1 COVID-19 (principal); I10 Essential (primary) hypertension; J44.9 Chronic obstructive pulmonary disease, unspecified
CPT/HCPCS: A9270; M0222; Q0222

== ENCOUNTER 2022-01-01 04:47 | Observation (INO) | payer OTHER, SELFPAY ==
[2022-01-01] VITALS (15 sets, daily range): BP systolic 120–164; BP diastolic 48–96; PULSE 71–98; RESP 15–20; TEMP 36.5–37.3; O2SAT 86–98
--- NOTE | ~2022-01-01 | CT_ITS ---
EXAMINATION: CTA chest PE protocol DATE: 01/01/2022 06:37 INDICATION: ddimer pos, crackles in bases TECHNIQUE: Computed tomography angiography (CTA) of the chest was performed with 100 mL Omnipaque-350 intravenous contrast timed to evaluate the pulmonary arteries. Coronal maximum intensity projection 3D-reconstructions were created by the technologist. The dose-length product (DLP) was 603.90 mGy-cm. Automated exposure control and iterative reconstruction technique were employed. COMPARISON: 12/14/2021, x-ray chest 01/01/2022. FINDINGS: Lung parenchyma and airways: Emphysematous and peripheral interstitial change. Focal areas of chronic major and minor fissure thickening. Pleura: Unremarkable. Thoracic inlet, axillae and chest wall: Unremarkable. Thoracic aorta: Noncalcified plaque at the arch. Mediastinum: Normal. Heart and pericardium: Normal. Coronary artery calcifications: Moderate. Upper abdomen: No significant finding. Bones: No acute osseous finding. Pulmonary arteries: Study quality: Adequate. No pulmonary emboli detected. IMPRESSION: No CT evidence of acute pulmonary embolus. Reviewed, dictated and finalized at location K.
--- NOTE | ~2022-01-01 | XR_ITS ---
EXAMINATION: XR chest 1V portable DATE: 01/01/2022 05:25 INDICATION: Atrial fibrillation. Positive COVID. TECHNIQUE: frontal view of the chest was obtained. COMPARISON: Chest radiograph dated 01/06/[address] dated 12/14/2021 FINDINGS: Chronic thin linear band of discoid atelectasis/scarring along the right minor fissure. Subtle increa sed lucency and architectural distortion at the bilateral upper lung zones consistent with emphysema better appreciated on prior CT. No new airspace opacities, pulmonary edema, pleural effusion or pneum othorax. The cardiomediastinal silhouette is normal. IMPRESSION: 1. Mild emphysema with chronic discoid atelectasis/scarring along the right minor fissure. Reviewed, dictated and finalized at location A. IMPRESSION: 1. Mild emphysema with chronic discoid atelectasis/scarring along the right min or fissure.
--- NOTE | 2022-01-01 05:10 | ECG_ITS ---
Measurements Intervals [place] Rate: 101 P: MA: 0 QRS: 75 QRSD: 137 T: -15 QT: 349 QTc: 452 Interpretive Statements ATRIAL FIBRILLATION WITH RAPID VENTRICULAR RESPONSE RIGHT BUNDLE BRANCH BLOCK BORDERLINE ST-T WAVE ABNORMALITY- INFERIOR LEADS BASELINE ARTIFACT- I, II, III, AVR, AVL, AVF, V1, V4-V6 ABNORMAL ECG Electronically Signed On 01-01-2022 8:15:15 CDT by Cash Stafford D.O.
--- NOTE | 2022-01-01 05:10 | ED.CHESTPAIN ---
HPI - Chest Pain General Chief Complaint: Chest Pain <Umberto Lainez MD - Last Filed: 01/10/22 14:10> Stated Complaint: Chest Pain <Umberto Lainez MD - Last Filed: 01/10/22 14:10> Time Seen by Provider: 01/01/22 05:10 <Umberto Lainez MD - Last Filed: 01/10/22 14:10> Source: patient, EMS and RN notes reviewed <Umberto Lainez MD - Last Filed: 01/10/22 14:10> Mode of arrival: EMS <Umberto Lainez MD - Last Filed: 01/10/22 14:10> Limitations: no limitations <Umberto Lainez MD - Last Filed: 01/10/22 14:10> History of Present Illness MD complaint: chest pain <Umberto Lainez MD - Last Filed: 01/10/22 14:10> Pertinent past history: coronary artery disease and prior LA <Umberto Lainez MD - Last Filed: 01/10/22 14:10> Onset (ago): hour(s) (1.25) <Umberto Lainez MD - Last Filed: 01/10/22 14:10> Timing of current episode: constant <Umberto Lainez MD - Last Filed: 01/10/22 14:10> Prior episodes: Yes <Umberto Lainez MD - Last Filed: 01/10/22 14:10> Onset: awoke with symptoms <Umberto Lainez MD - Last Filed: 01/10/22 14:10> Pain location: substernal <Umberto Lainez MD - Last Filed: 01/10/22 14:10> Pain radiation: jaw/teeth (aching) <Umberto Lainez MD - Last Filed: 01/10/22 14:10> Severity: moderate <Umberto Lainez MD - Last Filed: 01/10/22 14:10> Quality: aching (in jaw not in chest), dull and burning (chest) <Umberto Lainez MD - Last Filed: 01/10/22 14:10> Relieving factors: nothing <Umberto Lainez MD - Last Filed: 01/10/22 14:10> Exacerbating factors: nothing <Umberto Lainez MD - Last Filed: 01/10/22 14:10> Context: recent illness (COVID) <Umberto Lainez MD - Last Filed: 01/10/22 14:10> Associated symptoms: vomiting ( But has had vomiting with COVID) and diaphoresis <Umberto Lainez MD - Last Filed: 01/10/22 14:10> Treatment prior to arrival: aspirin <Umberto Lainez MD - Last Filed: 01/10/22 14:10> Risk Factors Coronary artery disease risk factors: smoking history, hyperlipidemia and hypertension <Umberto Lainez MD - Last Filed: 01/10/22 14:10> Pulmonary embolism risk factors: morbid obesity <Umberto Lainez MD - Last Filed: 01/10/22 14:10> Related Data Home Medications: Home Medications Medication Instructions Recorded Confirmed esomeprazole magnesium 40 mg 40 mg PO DAILY 07/16/19 01/01/22 capsule,delayed release metoprolol succinate 25 mg 50 mg PO DAILY 07/16/19 01/01/22 tablet,extended release 24 hr diltiazem HCl 180 mg 240 mg PO QAM 01/01/22 01/01/22 capsule,extended release 24 hr, controlled nintedanib 100 mg capsule (Ofev) 100 mg PO Q12H 01/01/22 01/01/22 prasugrel 10 mg tablet 10 mg PO BID 01/01/22 01/01/22 rivaroxaban 20 mg tablet (Xarelto) 20 mg PO DAILY 01/01/22 01/01/22 rosuvastatin 40 mg tablet 40 mg PO DAILY 01/01/22 01/01/22 <Umberto Lainez MD - Last Filed: 01/10/22 14:10> Allergies/Adverse Reactions: Allergies Allergy/AdvReac Type Severity Reaction Status Date / Time Penicillins Allergy Rash Verified 01/01/22 08:40 <Umberto Lainez MD - Last Filed: 01/10/22 14:10> Review of Systems Constitutional: Constitutional: Denies excessive sweating <Umberto Lainez MD - Last Filed: 01/10/22 14:10> PMFSH Past Medical History Medical History: Medical History COPD (chronic obstructive pulmonary disease) Coronary artery disease Tobacco dependence <Umberto Lainez MD - Last Filed: 01/10/22 14:10> Surgical History Surgical History: Surgical History History of cholecystectomy History of coronary artery stent placement <Umberto Lainez MD - Last Filed: 01/10/22 14:10> Family History Family History: Family History Father Acute myocardial infarct
[2022-01-01 05:24] LABS: Basophils Absolute Auto 0.05 K/mm3 (0.00-0.10); Basophils Percent Auto 0.4 % (0.0-1.0); Eosinophils Absolute Auto 0.09 K/mm3 (0.02-0.50); Eosinophils Percent Auto 0.7 % (1.0-6.0); Hematocrit 33.6 % (40.0-54.0); Hemoglobin 11.8 g/dL (14.0-18.0); Immature Granulocyte Absolute 0.05 K/mm3 (0.00-0.00); Immature Granulocyte Percent A 0.4 % (0.0-0.0); Lymphocytes Absolute Auto 2.99 K/mm3 (1.10-4.50); Lymphocytes Percent Auto 22.4 % (18.0-42.0); Mean Corpuscular HGB Conc 35.1 g/dL (32.0-36.0); Mean Corpuscular Hemoglobin 30.4 pg (27.0-31.0); Mean Corpuscular Volume 86.6 fL (78.0-102.0); Mean Platelet Volume 10.6 fl (8.7-11.0); Monocytes Absolute Auto 1.29 K/mm3 (0.10-0.90); Monocytes Percent Auto 9.7 % (2.0-11.0); Neutrophils Absolute Auto 8.9 K/mm3 (1.7-7.2); Neutrophils Percent Auto 66.4 % (50.0-70.0); Platelet Count Result 248 K/mm3 (150-420); Red Blood Count 3.88 M/mm3 (4.70-6.10); White Blood Count 13.4 K/mm3 (4.8-10.8)
[2022-01-01 05:32] LABS: INR 1.7; Prothrombin Time 17.4 Seconds (9.50-12.10)
[2022-01-01 05:37] LABS: Alanine Aminotransferase 64 U/L (16-63); Albumin Level 3.1 g/dL (3.4-5.0); Alkaline Phosphatase 77 U/L (46-116); Anion Gap 13 mmol/L (8-16); Aspartate Amino Transferase 63 U/L (15-37); Bilirubin,Total 0.8 mg/dL (0.00-1.00); Blood Urea Nitrogen 17 mg/dL (7-18); Calcium 8.1 mg/dL (8.5-10.1); Carbon Dioxide 28 mmol/L (21-32); Chloride 100 mmol/L (98-108); Estimated CRCL calculation 53 ml/min; Estimated Glomerular Filt Rate 52; Glucose 119 mg/dL (70-99); NT Pro B Type Natriuretic Pept 373 pg/mL (0-125); Osmolality Calculated 294 mOsm/kg (285-295); Potassium 2.7 mmol/L (3.5-5.1); Sodium 141 mmol/L (136-145); Total Protein 7.3 g/dL (6.4-8.2); Troponin I 34.2 ng/L (0.00-60.4)
[2022-01-01 05:58] LABS: D Dimer 0.59 mg/L (0.19-0.50)
[2022-01-01 05:59] LABS: Magnesium 0.8 mg/dL (1.8-2.4)
[2022-01-01] MEDS: MAGNESIUM SULF 2 GM/WATER 50ML 2 GM/50 ML BAG IVPB (06:38)
[2022-01-01] MEDS: POTASSIUM BICARBONATE 25 MEQ TABEF 50 MEQ PO (07:09)
[2022-01-01] MEDS: METOPROLOL SUCCINATE EXT REL 50 MG TABCR PO (10:10)
[2022-01-01] MEDS: PANTOPRAZOLE 40 MG TABLET PO (10:10)
--- NOTE | 2022-01-01 11:23 | PC.NURSE ---
pT ADMITTED TO ROOM 208 FROM THE ed. PT IS OBSERVATION STATUS, ON TELE. CO SOB AND CP. RN INSTRUCTED PT REGARDING CALL SYSTEM AND PHONE SYSTEM. PT VERBALIZE UNDERSTANDING.
[2022-01-01 12:55] LABS: Alanine Aminotransferase 62 U/L (16-63); Albumin Level 3.2 g/dL (3.4-5.0); Alkaline Phosphatase 77 U/L (46-116); Anion Gap 9 mmol/L (8-16); Aspartate Amino Transferase 60 U/L (15-37); Bilirubin,Total 0.8 mg/dL (0.00-1.00); Blood Urea Nitrogen 16 mg/dL (7-18); Calcium 8.3 mg/dL (8.5-10.1); Carbon Dioxide 31 mmol/L (21-32); Chloride 99 mmol/L (98-108); Estimated CRCL calculation 57 ml/min; Estimated Glomerular Filt Rate 56; Glucose 103 mg/dL (70-99); Osmolality Calculated 289 mOsm/kg (285-295); Potassium 3.1 mmol/L (3.5-5.1); Sodium 139 mmol/L (136-145); Total Protein 7.4 g/dL (6.4-8.2)
[2022-01-01] MEDS: LOPERAMIDE HCL 2 MG CAPSULE PO (13:53)
[2022-01-01 14:03] LABS: Magnesium 1.6 mg/dL (1.8-2.4)
[2022-01-01] MEDS: POTASSIUM CHLORIDE 20 MEQ TABLET 40 MEQ PO (14:27)
[2022-01-01] MEDS: MAGNESIUM OXIDE 400 MG TABLET PO (14:28)
[2022-01-01] MEDS: ROSUVASTATIN 10 MG TABLET 40 MG PO (17:14)
[2022-01-01] MEDS: RIVAROXABAN 10 MG TABLET 20 MG PO (17:15)
[2022-01-02 04:00] VITALS: BP 133/58; PULSE 80; RESP 18; TEMP 36.8; O2SAT 94
[2022-01-02 05:27] LABS: Hematocrit 31.6 % (40.0-54.0); Hemoglobin 10.8 g/dL (14.0-18.0); Mean Corpuscular HGB Conc 34.2 g/dL (32.0-36.0); Mean Corpuscular Hemoglobin 29.9 pg (27.0-31.0); Mean Corpuscular Volume 87.5 fL (78.0-102.0); Mean Platelet Volume 10.6 fl (8.7-11.0); Platelet Count Result 292 K/mm3 (150-420); Red Blood Count 3.61 M/mm3 (4.70-6.10); Red Cell Distribution Width 12.9 % (11.6-14.4); White Blood Count 10.5 K/mm3 (4.8-10.8)
[2022-01-02 05:43] LABS: Alanine Aminotransferase 65 U/L (16-63); Albumin Level 2.9 g/dL (3.4-5.0); Alkaline Phosphatase 81 U/L (46-116); Anion Gap 11 mmol/L (8-16); Aspartate Amino Transferase 61 U/L (15-37); Bilirubin,Total 0.8 mg/dL (0.00-1.00); Blood Urea Nitrogen 14 mg/dL (7-18); Calcium 7.9 mg/dL (8.5-10.1); Carbon Dioxide 29 mmol/L (21-32); Chloride 99 mmol/L (98-108); Estimated CRCL calculation 53 ml/min; Estimated Glomerular Filt Rate 52; Glucose 109 mg/dL (70-99); Osmolality Calculated 289 mOsm/kg (285-295); Potassium 2.9 mmol/L (3.5-5.1); Sodium 139 mmol/L (136-145); Total Protein 6.9 g/dL (6.4-8.2)
[2022-01-02 05:44] LABS: Magnesium 1.4 mg/dL (1.8-2.4)
[2022-01-02 08:00] VITALS: BP 128/55; PULSE 73; PULSE 74; RESP 16; TEMP 36.6; O2SAT 98
[2022-01-02] MEDS: POTASSIUM CHLORIDE 20 MEQ TABLET 40 MEQ PO ×2 (08:05→08:10)
[2022-01-02] MEDS: KCL 20 MEQ/SW 100 ML 100 ML 50 MEQ IVPB (08:22)
[2022-01-02 09:11] VITALS: PULSE 78
[2022-01-02] MEDS: METOPROLOL SUCCINATE EXT REL 50 MG TABCR PO (09:11)
[2022-01-02] MEDS: MAGNESIUM OXIDE 400 MG TABLET PO (09:11)
[2022-01-02] MEDS: PANTOPRAZOLE 40 MG TABLET PO (09:11)
[2022-01-02] MEDS: SODIUM CHLORIDE 0.9% IV 250 ML 100 ML ×2 (09:12→10:20)
[2022-01-02] MEDS: LOPERAMIDE HCL 2 MG CAPSULE PO (10:21)
[2022-01-02] MEDS: MAGNESIUM SULF 4 GM/WATER100ML 4 GM/100 ML BAG IVPB (10:50)
[2022-01-02 12:00] VITALS: BP 145/60; PULSE 80; PULSE 85; RESP 16; TEMP 36.6; O2SAT 98
--- NOTE | 2022-01-02 12:23 | PM.SD2 ---
Same Day Admit/Disch: HPI History of Present Illness Chief complaint: Chest Pain AFIB Narrative: Rui Sanders is a 61 year old male that presented to our emergency department with complaints of chest discomfort. Patient has a past medical history of COPD, stent placement and CAD. According to patient his he was diagnosed with COVID last Sunday. Patient experienced nausea vomiting and diarrhea during this time. According to patient and his he has chronic diarrhea due to his medication Ofev. According to patient his he has liquid diarrhea daily greater than 6/day. 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 He is taking the medication due to a lesion on his lung and notes that the lesion has not grown due to the medication and does not want to be taken off the medication. I did notify his banking supervisor Dr. Vanessa Aguilera at [phone] who informed her of the side effect of his medication. Also informed his primary care physician Dr. Osborne of his electrolyte imbalance possibly due to his nausea vomiting and diarrhea. Patient will be discharged with a follow-up lab repeat in 1 week with results going to his primary care physician and supplements for replacement. Patient will follow up with his primary care physician for continuation of supplements or further diagnostics testing. Day of discharge patient denies any chest pain. He does continue to have diarrhea but he is also taking Imodium to decrease the amount of bowel movements. He will follow-up with his banking supervisor for possible medication adjustment or change. Vital signs 97.8, 74, 16, 98% on room air, 128/55, labs on admission WBCs 13.4, hemoglobin 11.8, hematocrit 33.6, platelets 248, D-dimer 0.59, sodium 141, potassium 2.7, BUN 17, creatinine 1.39, glucose 119, magnesium 0.8, AST 63, ALT 64, total bilirubin 0.8, troponin 34.2, BUN 373, chest x-ray indicate mild emphysema, CTA negative for PE, EKG A. fib with RVR with a heart rate of 101. Patient will discharge today he agrees with discharge. He is able to tolerate meals and slept well. The patient denies SOB, CP, palpitation, extremity numbness, lightheadedness, dizziness, constipation, diarrhea, chills, or fever. [facility] Past Medical History Medical History COPD (chronic obstructive pulmonary disease) Coronary artery disease Tobacco dependence Surgical History Surgical History History of cholecystectomy History of coronary artery stent placement Family History Family History Father Acute myocardial infarction, Onset Age: 47 Diabetes mellitus Social History Social History (Updated 01/01/22 @ 11:10 by Fadia Lanza RN) Smoking packs per day: 1 Smoking cigarettes per day: 20.0 Years smoked: 30 Smoking pack-years: 30.00 Smoking status: Former smoker Tobacco type: cigarettes Second hand tobacco smoke exposure: No Smoking end date: 01/01/22 Alcohol intake: never Drinks per week: 14 Alcohol use details: Occaisional Substance use: never Substance use type: does not use Living arrangements: with family Occupation/Education: unemployed Gender identity (if verbalized by the patient): Male Sexual Orientation (if Verbalized by the Patient): Straight or Heterosexual Spiritual care concerns: No Agree to blood products: No Same Day Admit/Disch: Med Pre-admit Medications Home Medications Medication Instructions Recorded Confirmed Type esomeprazole magnesium 40 mg 40 mg PO DAILY 07/16/19 01/01/22 History capsule,delayed release metoprolol succinate 25 mg 50 mg PO DAILY 07/16/19 01/01/22 History tablet,extended release 24 hr diltiazem HCl 180 mg 240 mg PO QAM 01/01/22 01/01/22 History capsule,extended release 24 hr, controlled loperamide 2 m
[2022-01-02 12:24] LABS: Alanine Aminotransferase 66 U/L (16-63); Albumin Level 2.8 g/dL (3.4-5.0); Alkaline Phosphatase 88 U/L (46-116); Anion Gap 7 mmol/L (8-16); Aspartate Amino Transferase 69 U/L (15-37); Bilirubin,Total 0.6 mg/dL (0.00-1.00); Blood Urea Nitrogen 14 mg/dL (7-18); Carbon Dioxide 30 mmol/L (21-32); Chloride 102 mmol/L (98-108); Estimated CRCL calculation 55 ml/min; Estimated Glomerular Filt Rate 54; Glucose 101 mg/dL (70-99); Magnesium 3.6 mg/dL (1.8-2.4); Osmolality Calculated 288 mOsm/kg (285-295); Potassium 3.6 mmol/L (3.5-5.1); Sodium 139 mmol/L (136-145); Total Protein 6.7 g/dL (6.4-8.2)
--- NOTE | 2022-01-02 13:32 | PC.NURSE ---
Pt discharged to home with VSS. Pt instructed regarding medications doseages , side effects, and times, post hospital MD appointment and labs. Pt and spouse verbalize understanding of instructions. Covid isolation requirements reviewed with pt. Pt walked to his car with with his spouse.
--- NOTE | 2022-01-03 11:13 | PC.NURSE ---
Pt states he received and understood his discharge instructions. Pt also states I didn't like the second emergency room doctor .
== END 2022-01-02 13:15 | disposition home or self-care (01) ==
LOC: CHSED 04:52 → CHS2ND 08:54
PROVIDERS: Nurse Practitioner; Admitting Provider Internal Medicine; Emergency Provider Emergency Medicine; PCP Internal Medicine; Visit Provider Internal Medicine
DX: R07.89 Other chest pain (principal); U07.1 COVID-19; I48.91 Unspecified atrial fibrillation; I25.10 Atherosclerotic heart disease of native coronary artery without angina pectoris; J44.9 Chronic obstructive pulmonary disease, unspecified; E87.8 Other disorders of electrolyte and fluid balance, not elsewhere classified; K52.1 Toxic gastroenteritis and colitis; K21.9 Gastro-esophageal reflux disease without esophagitis; R74.8 Abnormal levels of other serum enzymes; F17.210 Nicotine dependence, cigarettes, uncomplicated; Z95.5 Presence of coronary angioplasty implant and graft
CPT/HCPCS: 36415; 71045; 71275; 80053; 83735; 83880; 84484; 85025; 85027; 85380; 85610; 93005; 96365; 96366; 96367; 99285; A9270; G0378; J3475; J3480; J7050; Q9967

== ENCOUNTER 2022-01-09 07:10 | Outpatient (CLI) | payer OTHER, SELFPAY ==
[2022-01-09 08:36] LABS: Alanine Aminotransferase 66 U/L (16-63); Albumin Level 3.3 g/dL (3.4-5.0); Alkaline Phosphatase 141 U/L (46-116); Anion Gap 11 mmol/L (8-16); Aspartate Amino Transferase 41 U/L (15-37); Bilirubin,Total 0.4 mg/dL (0.00-1.00); Blood Urea Nitrogen 18 mg/dL (7-18); Calcium 9.5 mg/dL (8.5-10.1); Carbon Dioxide 26 mmol/L (21-32); Chloride 102 mmol/L (98-108); Estimated Glomerular Filt Rate 54; Glucose 103 mg/dL (70-99); Osmolality Calculated 289 mOsm/kg (285-295); Potassium 4.9 mmol/L (3.5-5.1); Sodium 139 mmol/L (136-145); Total Protein 7.1 g/dL (6.4-8.2)
== END 2022-01-09 07:11 | disposition home or self-care (01) ==
LOC: CHSLAB 07:11
PROVIDERS: PCP Internal Medicine; Visit Provider Nurse Practitioner
DX: E87.8 Other disorders of electrolyte and fluid balance, not elsewhere classified (principal)
CPT/HCPCS: 36415; 80053

== ENCOUNTER 2022-01-24 06:58 | Outpatient (CLI) | payer OTHER, SELFPAY ==
[2022-01-24 07:15] LABS: Basophils Absolute Auto 0.07 K/mm3 (0.00-0.10); Basophils Percent Auto 0.6 % (0.0-1.0); Eosinophils Absolute Auto 0.12 K/mm3 (0.02-0.50); Eosinophils Percent Auto 1.1 % (1.0-6.0); Hematocrit 33.2 % (40.0-54.0); Hemoglobin 11.1 g/dL (14.0-18.0); Immature Granulocyte Absolute 0.03 K/mm3 (0.00-0.00); Immature Granulocyte Percent A 0.3 % (0.0-0.0); Lymphocytes Absolute Auto 2.87 K/mm3 (1.10-4.50); Lymphocytes Percent Auto 26.2 % (18.0-42.0); Mean Corpuscular HGB Conc 33.4 g/dL (32.0-36.0); Mean Corpuscular Hemoglobin 29.3 pg (27.0-31.0); Mean Corpuscular Volume 87.6 fL (78.0-102.0); Mean Platelet Volume 10.4 fl (8.7-11.0); Monocytes Absolute Auto 0.74 K/mm3 (0.10-0.90); Monocytes Percent Auto 6.8 % (2.0-11.0); Neutrophils Absolute Auto 7.1 K/mm3 (1.7-7.2); Platelet Count Result 229 K/mm3 (150-420); Red Blood Count 3.79 M/mm3 (4.70-6.10)
[2022-01-24 07:37] LABS: Alanine Aminotransferase 37 U/L (16-63); Albumin Level 3.6 g/dL (3.4-5.0); Alkaline Phosphatase 75 U/L (46-116); Anion Gap 8 mmol/L (8-16); Aspartate Amino Transferase 30 U/L (15-37); Bilirubin,Total 0.3 mg/dL (0.00-1.00); Blood Urea Nitrogen 15 mg/dL (7-18); Calcium 8.3 mg/dL (8.5-10.1); Carbon Dioxide 28 mmol/L (21-32); Chloride 103 mmol/L (98-108); Estimated Glomerular Filt Rate > 60; Glucose 111 mg/dL (70-99); Magnesium 1.1 mg/dL (1.8-2.4); Osmolality Calculated 289 mOsm/kg (285-295); Phosphorus 3.8 mg/dL (2.6-4.7); Potassium 3.4 mmol/L (3.5-5.1); Sodium 139 mmol/L (136-145); Total Protein 6.9 g/dL (6.4-8.2)
[2022-01-24 09:03] LABS: Add Urine Microscopic? YES; Appearance Urine Clear (Clear); Bilirubin Urine Negative (Negative); Blood Urine Negative (Negative); Color Urine Yellow (Yellow); Glucose Urine UA Negative (Negative); Ketones Urine Negative (Negative); Leukocyte Esterase Ur Negative (Negative); Nitrate Urine Negative (Negative); Protein Urine 1+ (Negative); Specific Grav Ur 1.025 (1.010-1.020); Urobilinogen Urine 0.2 mg/dL (0.2-1.0)
[2022-01-24 09:27] LABS: Bacteria Urine Trace /hpf; Mucus Urine Few /lpf; RBC Urine None seen /hpf (0-2); WBC Urine 0-3 /hpf (0-3)
[2022-01-27 04:12] LABS: Hepatitis A Antibody IgM Nonreactive; Hepatitis B Core Antibody Nonreactive (Nonreactive); Hepatitis B Surface Antigen Nonreactive (Nonreactive); Hepatitis C Signal to Cutoff 0.01 ratio (<1.00); Hepatitis C Virus Antibody Nonreactive (Nonreactive)
== END 2022-01-24 06:59 | disposition home or self-care (01) ==
LOC: CHSLAB 07:01
PROVIDERS: PCP Internal Medicine; Visit Provider Internal Medicine
DX: R79.89 Other specified abnormal findings of blood chemistry (principal); R94.5 Abnormal results of liver function studies
CPT/HCPCS: 36415; 80053; 80074; 81001; 83735; 84100; 85025

== ENCOUNTER 2022-01-27 10:05 | Outpatient (CLI) | payer OTHER, SELFPAY ==
[2022-01-27 11:36] LABS: Total Protein Urine Random 30.7 mg/dL (0.0-11.9)
[2022-01-27 11:43] LABS: Total Protein Urine 24 Hr 292 mg/24hr (0-149); Total Volume 24 Hour Urine 950 ml
== END 2022-01-27 10:06 | disposition home or self-care (01) ==
LOC: CHSLAB 10:06
PROVIDERS: PCP Internal Medicine; Visit Provider Internal Medicine
DX: R80.8 Other proteinuria (principal)
CPT/HCPCS: 81050; 84156

== ENCOUNTER 2022-02-08 07:34 | Outpatient (CLI) | payer OTHER, SELFPAY ==
[2022-02-08 08:08] LABS: Alanine Aminotransferase 49 U/L (16-63); Albumin Level 3.7 g/dL (3.4-5.0); Alkaline Phosphatase 84 U/L (46-116); Anion Gap 7 mmol/L (8-16); Aspartate Amino Transferase 36 U/L (15-37); Bilirubin,Total 0.4 mg/dL (0.00-1.00); Blood Urea Nitrogen 16 mg/dL (7-18); Calcium 9.4 mg/dL (8.5-10.1); Carbon Dioxide 29 mmol/L (21-32); Chloride 101 mmol/L (98-108); Estimated Glomerular Filt Rate > 60; Glucose 115 mg/dL (70-99); Magnesium 1.4 mg/dL (1.8-2.4); Osmolality Calculated 286 mOsm/kg (285-295); Potassium 4.1 mmol/L (3.5-5.1); Sodium 137 mmol/L (136-145); Total Protein 7.2 g/dL (6.4-8.2)
== END 2022-02-08 07:35 | disposition home or self-care (01) ==
LOC: CHSLAB 07:37
PROVIDERS: PCP Internal Medicine; Visit Provider Internal Medicine
DX: E87.6 Hypokalemia (principal); E83.42 Hypomagnesemia
CPT/HCPCS: 36415; 80053; 83735

== ENCOUNTER 2022-04-05 07:49 | Outpatient (CLI) | payer MEDICARE, OTHER, SELFPAY ==
[2022-04-05 08:27] LABS: SARS-CoV-2 Ag Negative (Negative)
[2022-04-05 08:45] LABS: Influenza A QL RT-PCR Negative (Negative); Influenza B QL RT-PCR Negative (Negative)
[2022-04-05 08:58] LABS: RSV RNA, RT-PCR Negative (Negative)
[2022-04-05 14:10] LABS: Alanine Aminotransferase 43 U/L (16-63); Albumin Level 3.8 g/dL (3.4-5.0); Alkaline Phosphatase 82 U/L (46-116); Anion Gap 7 mmol/L (8-16); Aspartate Amino Transferase 27 U/L (15-37); Bilirubin,Total 0.4 mg/dL (0.00-1.00); Blood Urea Nitrogen 22 mg/dL (7-18); Calcium 9.3 mg/dL (8.5-10.1); Carbon Dioxide 28 mmol/L (21-32); Chloride 107 mmol/L (98-108); Estimated Glomerular Filt Rate 49; Glucose 98 mg/dL (70-99); Magnesium 1.8 mg/dL (1.8-2.4); Osmolality Calculated 297 mOsm/kg (285-295); Potassium 3.8 mmol/L (3.5-5.1); Sodium 142 mmol/L (136-145); Total Protein 7.7 g/dL (6.4-8.2)
== END 2022-04-05 07:50 | disposition home or self-care (01) ==
PROVIDERS: PCP Internal Medicine; Visit Provider Internal Medicine
DX: E87.6 Hypokalemia (principal); E83.42 Hypomagnesemia; J06.9 Acute upper respiratory infection, unspecified; Z20.822 Contact with and (suspected) exposure to COVID-19
CPT/HCPCS: 36415; 80053; 83735; 87426; 87502; 87637; C9803

== ENCOUNTER 2023-01-02 07:57 | Outpatient (CLI) | payer MEDICARE, OTHER, SELFPAY ==
[2023-01-02 09:10] LABS: Alanine Aminotransferase 39 U/L (16-63); Anion Gap 10 mmol/L (8-16); Aspartate Amino Transferase 28 U/L (15-37); Blood Urea Nitrogen 13 mg/dL (7-18); Calcium 9.2 mg/dL (8.5-10.1); Carbon Dioxide 26 mmol/L (21-32); Chloride 105 mmol/L (98-108); Estimated Glomerular Filt Rate 57; Glucose 118 mg/dL (70-99); Magnesium 1.9 mg/dL (1.8-2.4); Osmolality Calculated 293 mOsm/kg (285-295); Potassium 4.4 mmol/L (3.5-5.1); Sodium 141 mmol/L (136-145)
== END 2023-01-02 07:58 | disposition home or self-care (01) ==
LOC: CHSLAB 08:00
PROVIDERS: PCP Internal Medicine; Visit Provider Internal Medicine Pulmonary Disease
DX: J44.9 Chronic obstructive pulmonary disease, unspecified (principal); J84.10 Pulmonary fibrosis, unspecified; Z87.891 Personal history of nicotine dependence; Z95.5 Presence of coronary angioplasty implant and graft; I48.0 Paroxysmal atrial fibrillation
CPT/HCPCS: 36415; 80048; 83735; 84450; 84460

== ENCOUNTER 2023-01-08 09:14 | Outpatient (CLI) | payer MEDICARE, OTHER, SELFPAY ==
--- NOTE | ~2023-01-08 | CT_ITS ---
CT Scan of the Chest without Contrast: Clinical Indication: Pulmonary fibrosis, COPD Technique: Contiguous sections were acquired throughout the chest without intravenous contrast. Dose reduction technique was used on this scan by utilizing automated exposure control and iterative recon struction technique. The dose-length product (DLP) was 319.20 mGy-cm. COMPARISON: 01/01/2022 Findings: There is no evidence of any significant mediastinal, hilar or axillary lymphadenopathy. Small calcifi ed mediastinal and hilar lymph nodes are present. Coronary artery calcifications are present. There is no evidence of pleural or pericardial effusion. There is bilateral upper lobe emphysema and peripheral interstitial thickening/subpleural articulatio ns, which is similar to prior exam. There is focal area of thickening along the right minor fissure, unchanged. There is mild subpleural reticulation at the right lung base, similar to prior exam. Images through the upper abdomen reveal no abnormalities. Impression: Overall, no significant change from prior exam. Upper lobe predominant COPD and chronic interstitial change, as noted above. Evidence of prior granulomatous disease. Reviewed, dictated and finalized at [facility]. Impression: Overall, no significant change from prior exam. Upper lobe predominant COPD and chronic interstitial change, as noted above. Evidence of prior granulomatous disease.
--- NOTE | 2023-01-08 22:40 | P.PCNPFT_ITS ---
PFT Interpretation DOS: 01/08/2023 REQUESTING: Karli Aguilera MD REASON FOR TESTING: pulmonary fibrosis, COPD PULMONARY FUNCTION TESTS Results are reliable and reproducible. The control is Gaby Huber Dust Spirometry: Pre-bronchodilator FEV1 is 2.66 L, 79% predicted. Pre- bronchodilator FVC is 4.27 L, 99% predicted. FEV1/ FVC ratio is 62%, decreased, consistent with airflow obstruction. After bronchodilator administration, FEV1 is 2.79 L, 82% predicted, 5% increase. After bronchodilator, the FVC is 4.46 L, 103% predicted, 5% increase. The ratio is 63%. Lung volumes: Total lung capacity is 5.95 L, 90%, normal. The residual volume is 1.68 L, 70%, normal. RV /TLC is 28%, low end of normal. Airway resistance is normal. Diffusion: DLCO is 14.1, 56%, mildly decreased. DLCO / VA is 2.5, 66%. Flow volume loop: There is mild coving of the expiratory limb. IMPRESSION: This study shows a mild obstructive ventilatory impairment without response to bronchodilator, normal lung volumes and mild diffusion impairment which partially corrects for alveolar volume. Lack of response to bronchodilator should not preclude use if clinically indicated. Prior study on 06/09/2021 showed FEV1 2.79 L, 92% predicted, FVC is 4.25 L, 110% predicted. The FEV1/FVC ratio was 66%, and no change after bronchodilator. TLC was 6.27 L, 106%, RV was 2.02 L, 93%, RV/TLC 32%, 87% predicted. DLCO 12.2, 51%, DLCO VA 2.22, 58%. Values are similar. Cortney Oropeza MD
== END 2023-01-08 09:15 | disposition home or self-care (01) ==
LOC: CHSIMG 09:15
PROVIDERS: PCP Internal Medicine; Visit Provider Internal Medicine Pulmonary Disease
DX: J84.10 Pulmonary fibrosis, unspecified (principal); I48.0 Paroxysmal atrial fibrillation; J44.9 Chronic obstructive pulmonary disease, unspecified; R94.2 Abnormal results of pulmonary function studies; R91.8 Other nonspecific abnormal finding of lung field
CPT/HCPCS: 71250; 94060; 94726; 94729

== ENCOUNTER 2023-09-20 07:37 | Outpatient (CLI) | payer MEDICARE, OTHER, SELFPAY ==
[2023-09-20 07:54] LABS: Basophils Absolute Auto 0.07 K/mm3 (0.00-0.10); Basophils Percent Auto 0.6 % (0.0-1.0); Eosinophils Absolute Auto 0.08 K/mm3 (0.02-0.50); Eosinophils Percent Auto 0.6 % (1.0-6.0); Hematocrit 39.9 % (40.0-54.0); Hemoglobin 12.9 g/dL (14.0-18.0); Immature Granulocyte Absolute 0.04 K/mm3 (0.00-0.00); Immature Granulocyte Percent A 0.3 % (0.0-0.0); Lymphocytes Absolute Auto 1.35 K/mm3 (1.10-4.50); Lymphocytes Percent Auto 10.8 % (18.0-42.0); Mean Corpuscular HGB Conc 32.3 g/dL (32-36); Mean Corpuscular Volume 86.7 fL (78.0-102.0); Mean Platelet Volume 9.4 fl (8.7-11.0); Monocytes Absolute Auto 0.88 K/mm3 (0.10-0.90); Monocytes Percent Auto 7.1 % (2.0-11.0); Neutrophils Absolute Auto 10.06 K/mm3 (1.70-7.20); Neutrophils Percent Auto 80.6 % (50.0-70.0); Platelet Count Result 198 K/mm3 (150-420); White Blood Count 12.5 K/mm3 (4.8-10.8)
[2023-09-20 08:30] LABS: Alanine Aminotransferase 42 U/L (16-63); Albumin Level 3.8 g/dL (3.4-5.0); Alkaline Phosphatase 84 U/L (46-116); Anion Gap 8 mmol/L (4-12); Aspartate Amino Transferase 33 U/L (15-37); Bilirubin,Total 0.7 mg/dL (0.00-1.00); Blood Urea Nitrogen 18 mg/dL (7-18); Carbon Dioxide 29 mmol/L (21-32); Chloride 105 mmol/L (98-108); Cholesterol 107 mg/dL (0-200); Estimated Glomerular Filt Rate 56; Glucose 114 mg/dL (70-99); HDL Direct 31 mg/dL (40-60); LDL Cholesterol Calculated 51 mg/dL (<130); Osmolality Calculated 296 mOsm/kg (285-295); Potassium 4.5 mmol/L (3.5-5.1); Sodium 142 mmol/L (136-145); Total Protein 6.8 g/dL (6.4-8.2); Triglycerides 126 mg/dL (0-150)
== END 2023-09-20 07:38 | disposition home or self-care (01) ==
PROVIDERS: PCP Internal Medicine; Visit Provider Nuclear Medicine Nuclear Cardiology
DX: E78.00 Pure hypercholesterolemia, unspecified (principal); J44.9 Chronic obstructive pulmonary disease, unspecified; J84.10 Pulmonary fibrosis, unspecified; Z87.891 Personal history of nicotine dependence
CPT/HCPCS: 36415; 80053; 80061; 85025

== ENCOUNTER 2023-12-29 10:00 | Observation (INO) | payer MEDICARE, OTHER, SELFPAY ==
[2023-12-29] VITALS (24 sets, daily range): BP systolic 115–140; BP diastolic 65–88; PULSE 51–79; RESP 13–20; TEMP 35.8–36.3; O2SAT 95–99; BMI 31.8
--- NOTE | ~2023-12-29 | XR_ITS ---
EXAMINATION: XR chest 1V portable 12/29/2023 10:13 INDICATION: Chest pain PROCEDURE: AP portable chest COMPARISON: Comparison to multiple prior studies sequentially, with oldest reviewed study dated 12/18. FINDINGS: The lungs are clear. The cardiomediastinal silhouette is within normal limits. There are no pleural effusions. There is no pneumothorax suspected. IMPRESSION: 1: NO ACUTE CARDIOPULMONARY DISEASE. Reviewed, dictated and finalized at location B.
--- NOTE | 2023-12-29 10:01 | ED.CHESTPAIN ---
HPI - Chest Pain General Chief Complaint: Chest Pain Stated Complaint: chest pain Source: patient and family Mode of arrival: ambulatory Limitations: no limitations History of Present Illness HPI narrative: Patient came to the emergency room by private car with his complaining of chest burning sensation across chest started last night while sitting watching TV and eating ice cream. 10/11. No radiation. Worse laying down flat, slightly better sitting. He denies shortness of breath. History of coronary artery disease, coronary stents, GERD, pulmonary fibrosis, COPD and atrial fibrillation and currently on Eliquis. He denies any fever, chills, nausea, vomiting or shortness of breath back pain. Related Data Home Medications Medication Instructions Recorded Confirmed esomeprazole magnesium 40 mg 40 mg PO BID 07/16/19 12/29/23 capsule,delayed release metoprolol succinate 25 mg 50 mg PO DAILY 07/16/19 12/29/23 tablet,extended release 24 hr diltiazem HCl 180 mg 240 mg PO QAM 01/01/22 12/29/23 capsule,extended release 24 hr, controlled nintedanib 100 mg capsule (Ofev) 100 mg PO Q12H 01/01/22 12/29/23 rosuvastatin 40 mg tablet 40 mg PO HS 01/01/22 12/29/23 apixaban 5 mg tablet (Eliquis) 5 mg PO BID 12/29/23 12/29/23 aspirin 81 mg tablet 81 mg PO DAILY 12/29/23 12/29/23 cephalexin 500 mg capsule 500 mg PO QID 12/29/23 12/29/23 magnesium 500 mg tablet 500 mg PO DAILY 12/29/23 12/29/23 metronidazole 250 mg tablet 250 mg PO TID 12/29/23 12/29/23 Allergies Allergy/AdvReac Type Severity Reaction Status Date / Time Penicillins Allergy Rash Verified 01/01/22 08:40 Review of Systems Review of Systems: All systems reviewed & are unremarkable except as noted in HPI and below PMFSH Past Medical History Medical History COPD (chronic obstructive pulmonary disease) Coronary artery disease Tobacco dependence Surgical History Surgical History History of cholecystectomy History of coronary artery stent placement Family History Family History Father Acute myocardial infarction, Onset Age: 47 Diabetes mellitus Social History Social History Smoking packs per day: 1 Smoking cigarettes per day: 20.0 Years smoked: 35 Smoking pack-years: 35.00 Smoking status: Former smoker Tobacco type: cigarettes Second hand tobacco smoke exposure: No Smoking end date: 02/03/20 Alcohol intake: never Drinks per week: 14 Alcohol use details: Occaisional Substance use: never Substance use type: does not use Do You Feel Safe in your Home?: Yes Lack of Transportation: No Lack of Food: Never True Current Housing: I Have Housing Concerned About Future Housing: No Difficulty Paying Gas/Electric Bills: No Difficulty Paying for Meds: No Currently Unemployed: No Education: Associate Degree Difficulty w/ Childcare or Family Care: No Living arrangements: with family Occupation/Education: unemployed Gender identity (if verbalized by the patient): Male Sexual Orientation (if Verbalized by the Patient): Straight or Heterosexual Spiritual care concerns: No Agree to blood products: No Exam Narrative: General appearance: Well-developed, well-nourished Skin: Normal color Head: Normocephalic, nontraumatic Eyes: Clear conjunctiva ENT: Oropharynx normal, ears normal, nose normal Neck: Supple, nontender Chest and respiratory: Airway patent, no respiratory distress, no accessory muscle use Heart: Irregular heart rate Abdomen: Soft, nontender, no organomegaly, quiet bowel sounds Vascular: Normal peripheral pulses, normal capillary refill. Musculoskeletal: Normal range of motion, nontender back Neurologic: Alert and oriented ?3, NURSE TRANSITION is normal as tested, no gross motor deficit
--- NOTE | 2023-12-29 10:02 | ECG_ITS ---
Test Date: 2023-12-29 10:05:54 Measurements Intervals [place] Rate: 59 P: 0 IN: 0 QRS: 64 QRSD: 115 T: 30 QT: 417 QTc: 416 Interpretive Statements ATRIAL FIBRILLATION WITH SLOW VENTRICULAR RESPONSE RIGHT BUNDLE BRANCH BLOCK BASELINE ARTIFACT- I, II, III, AVR, V1 ABNORMAL ECG No previous ECG available for comparison Electronically Signed On 12-29-2023 10:42:23 CDT by Cash Stafford D.O.
[2023-12-29 10:24] LABS: Eosinophils Absolute Auto 0.11 K/mm3 (0.02-0.50); Eosinophils Percent Auto 1.1 % (1.0-6.0); Hematocrit 37.3 % (40.0-54.0); Hemoglobin 12.5 g/dL (14.0-18.0); Immature Granulocyte Absolute 0.03 K/mm3 (0.00-0.00); Immature Granulocyte Percent A 0.3 % (0.0-0.0); Lymphocytes Absolute Auto 2.36 K/mm3 (1.10-4.50); Lymphocytes Percent Auto 22.8 % (18.0-42.0); Mean Corpuscular HGB Conc 33.5 g/dL (32-36); Mean Corpuscular Volume 86.5 fL (78.0-102.0); Mean Platelet Volume 9.7 fl (8.7-11.0); Monocytes Absolute Auto 0.79 K/mm3 (0.10-0.90); Monocytes Percent Auto 7.6 % (2.0-11.0); Neutrophils Absolute Auto 6.94 K/mm3 (1.70-7.20); Neutrophils Percent Auto 67.2 % (50.0-70.0); Platelet Count Result 270 K/mm3 (150-420); Red Blood Count 4.31 M/mm3 (4.70-6.10); Red Cell Distribution Width 13.7 % (11.6-14.4); White Blood Count 10.3 K/mm3 (4.8-10.8)
[2023-12-29] MEDS: ASPIRIN 81 MG CHEWABLE TABLET 324 MG PO (10:34)
[2023-12-29 10:37] LABS: Partial Thromboplastin Time 31.2 Sec (23.9-30.70); Prothrombin Time 11.3 Seconds (9.50-12.1)
[2023-12-29] MEDS: LORazepam (*CRX) 1 MG TABLET PO (10:40)
[2023-12-29 10:49] LABS: Alanine Aminotransferase 28 U/L (16-63); Albumin Level 3.6 g/dL (3.4-5.0); Alkaline Phosphatase 77 U/L (46-116); Anion Gap 11 mmol/L (4-12); Aspartate Amino Transferase 28 U/L (15-37); Bilirubin,Total 0.3 mg/dL (0.00-1.00); Blood Urea Nitrogen 20 mg/dL (7-18); Calcium 8.8 mg/dL (8.5-10.1); Carbon Dioxide 26 mmol/L (21-32); Chloride 104 mmol/L (98-108); Estimated CRCL calculation 53 ml/min; Estimated Glomerular Filt Rate 51; Glucose 110 mg/dL (70-99); Lipase 21 U/L (16-77); NT Pro B Type Natriuretic Pept 2585 pg/mL (0-125); Osmolality Calculated 295 mOsm/kg (285-295); Potassium 4.7 mmol/L (3.5-5.1); Sodium 141 mmol/L (136-145); Troponin I 37.3 ng/L (0.00-60.4)
--- NOTE | 2023-12-29 12:10 | ADMGEN ---
This patient, Rui Sanders, was admitted to 2nd Floor Room 203-1. Patient/family oriented to hospital policies and general routines including ID bracelet, bed and alarms, visiting hours, pain management, procedures, bathroom and other care routines, personal items, smoking policy, room service/diet, and visiting hours. Information on how to activate the Rapid Response Team has been discussed. Patient/Family are encouraged to report perceived risks to care and to ask questions if they do not understand what they are told or what they should do.
[2023-12-29 13:33] LABS: Troponin I 29.9 ng/L (0.00-60.4)
[2023-12-29] MEDS: metroNIDAZOLE 250 MG TABLET PO (14:48)
[2023-12-29] MEDS: CEPHALEXIN 500 MG CAPSULE PO (14:48)
[2023-12-29] MEDS: PANTOPRAZOLE 40 MG TABLET PO (17:11)
--- NOTE | 2023-12-29 18:40 | ECG_ITS ---
Test Date: 2023-12-29 19:03:49 Measurements Intervals [place] Rate: 63 P: 0 NE: 0 QRS: 43 QRSD: 134 T: 2 QT: 424 QTc: 437 Interpretive Statements ATRIAL FIBRILLATION RIGHT BUNDLE BRANCH BLOCK BASELINE ARTIFACT- I, III, AVL, AVF ABNORMAL ECG Compared to ECG 12/29/2023 10:05:54 HEART RATE HAS INCREASED Electronically Signed On 12-29-2023 19:36:21 CDT by Cash Stafford D.O.
--- NOTE | 2023-12-29 18:51 | PM.SD2 ---
Same Day Admit/Disch: HPI History of Present Illness Chief complaint: chest pain Narrative: Rui Sanders is a 63 year old male with a past medical history of coronary artery disease with 3 stents, atrial fibrillation on anticoagulation, GERD, pulmonary fibrosis, emphysema, and COPD not on oxygen. He provides the following history. He was sitting in bed last night eating ice cream when he started to have chest burning. He also experienced some pain in his right jaw but he also has a bad tooth that needs to be pulled. He is currently on pre-procedural antibiotics for extraction. He says he has experienced pain like twice before and both times he was seen here at the ED and found to be in atrial fibrillation with a RVR (rate 101 bpm). Nothing made the pain better, laying down flat made the pain worse. He denies headache, dizziness, shortness of breath, abdominal pain, nausea, vomiting, constipation, or diarrhea. He does have soft loose stool but this has been chronic from his pulmonary fibrosis medication. In the ED his EKG showed atrial fibrillation with a rate of 59 which is mostly unchanged from previous EKGs on file. His initial troponin was negative. He was admitted for observation and serial troponin monitoring. The remainder of his troponin were negative, he remained in rate controlled a-fib, repeat EKG unchanged, and has not had chest pain recurrence. I offered for him to stay overnight if he felt nervous about discharging but he is more than ready to go home. I discussed when to return to the hospital for further evaluation. He and his verbalized understanding. He is going to be contacting his inspectors and regulatory officers on Sunday given this episode and emergency room visit. We have faxed his hospital records from this occurrence to his inspectors and regulatory officers office, Dr. Montes De Oca at [facility] at [phone]. [facility] Past Medical History Medical History COPD (chronic obstructive pulmonary disease) Coronary artery disease Tobacco dependence Surgical History Surgical History History of cholecystectomy History of coronary artery stent placement Family History Family History Father Acute myocardial infarction, Onset Age: 47 Diabetes mellitus Social History Social History Smoking packs per day: 1 Smoking cigarettes per day: 20.0 Years smoked: 35 Smoking pack-years: 35.00 Smoking status: Former smoker Tobacco type: cigarettes Second hand tobacco smoke exposure: No Smoking end date: 02/03/20 Alcohol intake: never Drinks per week: 14 Alcohol use details: Occaisional Substance use: never Substance use type: does not use Do You Feel Safe in your Home?: Yes Lack of Transportation: No Lack of Food: Never True Current Housing: I Have Housing Concerned About Future Housing: No Difficulty Paying Gas/Electric Bills: No Difficulty Paying for Meds: No Currently Unemployed: No Education: Associate Degree Difficulty w/ Childcare or Family Care: No Living arrangements: with family Occupation/Education: unemployed Gender identity (if verbalized by the patient): Male Sexual Orientation (if Verbalized by the Patient): Straight or Heterosexual Spiritual care concerns: No Agree to blood products: No Same Day Admit/Disch: Med Pre-admit Medications Home Medications Medication Instructions Recorded Confirmed Type esomeprazole magnesium 40 mg 40 mg PO BID 07/16/19 12/29/23 History capsule,delayed release metoprolol succinate 25 mg 50 mg PO DAILY 07/16/19 12/29/23 History tablet,extended release 24 hr diltiazem HCl 180 mg 240 mg PO QAM 01/01/22 12/29/23 History capsule,extended release 24 hr, controlled nintedanib 100 mg capsule (Ofev) 100 mg PO Q12H 01/01/22 12/29/23 History
--- NOTE | 2023-12-29 19:31 | PC.NURSE ---
This RN discussed discharge instructions w/pt and family present. 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 Pt had no further questions after reviewing the packet. Pt signed appropriate paperwork. Pt ambulated w/family out of room w/information in hand.
--- NOTE | 2023-12-31 09:43 | PC.NURSE ---
Discharge call back attempted, no answer
--- NOTE | 2024-01-03 10:51 | PC.NURSE ---
Call back completed, no questions regarding discharge instructions
== END 2023-12-29 19:27 | disposition home or self-care (01) ==
LOC: CHSED 10:21 → CHS2ND 12:00
PROVIDERS: Admitting Provider Internal Medicine; Emergency Provider Emergency Medicine; PCP Internal Medicine; Visit Provider Internal Medicine
DX: J84.10 Pulmonary fibrosis, unspecified (principal); K21.9 Gastro-esophageal reflux disease without esophagitis; I25.10 Atherosclerotic heart disease of native coronary artery without angina pectoris; I48.91 Unspecified atrial fibrillation; J43.9 Emphysema, unspecified; J44.9 Chronic obstructive pulmonary disease, unspecified; Z95.5 Presence of coronary angioplasty implant and graft; Z87.891 Personal history of nicotine dependence; Z79.01 Long term (current) use of anticoagulants; Z79.82 Long term (current) use of aspirin
CPT/HCPCS: 36415; 71045; 80053; 83690; 83880; 84484; 85025; 85610; 85730; 93005; A9270

== ENCOUNTER 2024-02-05 08:47 | Outpatient (CLI) | payer MEDICARE, OTHER, SELFPAY ==
--- NOTE | ~2024-02-05 | CT_ITS ---
CT Scan of the Chest without Contrast: Clinical Indication: COPD, pulmonary fibrosis Technique: Contiguous sections were acquired throughout the chest without intravenous contrast. Dose reduction technique was used on this scan by utilizing automated exposure control and iterative recon struction technique. The dose-length product (DLP) was 291.59 mGy-cm. Findings: There is no evidence of any significant mediastinal, hilar or axillary lymphadenopathy. Calcified med iastinal and right hilar lymph nodes are present. There are extensive coronary artery calcifications. There is no evidence of pleural or pericardial effusion. There is moderate emphysema with peripheral chronic interstitial change, especially the upper lobes. There is a stable spiculated area of thickening right minor fissure. Images through the upper abdomen reveal no abnormalities. Impression: No significant change from prior exam. Stable COPD and chronic interstitial disease. Stable area of irregular thickening along the right minor fissure. Reviewed, dictated and finalized at [facility]. Impression: No significant change from prior exam. Stable COPD and chronic interstitial dis ease. Stable area of irregular thickening along the right minor fissure.
--- NOTE | 2024-02-07 16:18 | P.PCNPFT_ITS ---
PFT Procedure Performed PFT Procedure Performed Spirometry with Pre/Post Bronchodilator Plethysmography (Lung Vol) Diffusing Cap (DLCO) Flow Vol Loop PFT Interpretation DOS: 02/05/2024 REQUESTING: Karli Aguilera MD REASON FOR TESTING: Fibrosis, COPD PULMONARY FUNCTION TESTS Results are reliable and reproducible. Spirometry: The pre-bronchodilator FEV1 is 2.72 L, 88%, normal. The pre- bronchodilator FVC is 4.43 L, 112%, normal. The FEV1/FVC ratio is 61%, reduced, consistent with airflow obstruction. After bronchodilator, the FEV1 is 2.91 L, 94%, +7%. The post bronchodilator FVC is 4.56 L, 115%, +3%. The FEV1/FVC ratio is 64%. Lung volumes: The total lung capacity is 6.59 L, 107%, normal. FRC is 4.67 L, 147%, increased. The residual volume is 2.17 L, 95%, normal. The RV/TLC is 33%. Diffusion: DLCO is 13.8, 57%, moderately decreased. The DLCO/VA is 2.39, 63%, mildly decreased. Flow volume loop: The flow volume loop shows coving of the expiratory limb consistent with airflow obstruction. IMPRESSION: This study shows a mild obstructive ventilatory impairment without significant response to bronchodilator, normal lung volumes, moderate diffusion impairment that corrects for alveolar volume. Compared to prior study on 01/08/2023, values are similar. Cortney Oropeza MD
== END 2024-02-05 08:48 | disposition home or self-care (01) ==
LOC: CHSIMG 08:51
PROVIDERS: PCP Internal Medicine; Visit Provider Internal Medicine Pulmonary Disease
DX: J44.9 Chronic obstructive pulmonary disease, unspecified (principal); Z87.891 Personal history of nicotine dependence; R94.2 Abnormal results of pulmonary function studies
CPT/HCPCS: 71250; 94060; 94726; 94729

== ENCOUNTER 2024-08-29 07:10 | Outpatient (CLI) | payer MEDICARE, OTHER, SELFPAY ==
[2024-08-29 07:47] LABS: Basophils Percent Auto 0.8 % (0.0-1.0); Eosinophils Absolute Auto 0.14 K/mm3 (0.02-0.50); Eosinophils Percent Auto 1.1 % (1.0-6.0); Hematocrit 39.7 % (40.0-54.0); Hemoglobin 12.8 g/dL (14.0-18.0); Immature Granulocyte Absolute 0.04 K/mm3 (0.00-0.00); Immature Granulocyte Percent A 0.3 % (0.0-0.0); Lymphocytes Absolute Auto 2.71 K/mm3 (1.10-4.50); Lymphocytes Percent Auto 21.8 % (18.0-42.0); Mean Corpuscular HGB Conc 32.2 g/dL (32-36); Mean Corpuscular Hemoglobin 27.2 pg (27.0-31.0); Mean Corpuscular Volume 84.3 fL (78.0-102.0); Monocytes Percent Auto 8.8 % (2.0-11.0); Neutrophils Absolute Auto 8.34 K/mm3 (1.70-7.20); Neutrophils Percent Auto 67.2 % (50.0-70.0); Platelet Count Result 261 K/mm3 (150-420); Red Blood Count 4.71 M/mm3 (4.70-6.10); Red Cell Distribution Width 14.7 % (11.6-14.4); White Blood Count 12.4 K/mm3 (4.8-10.8)
[2024-08-29 08:03] LABS: Alanine Aminotransferase 33 U/L (16-63); Albumin Level 3.7 g/dL (3.4-5.0); Alkaline Phosphatase 98 U/L (46-116); Anion Gap 5 mmol/L (4-12); Aspartate Amino Transferase 20 U/L (15-37); Bilirubin,Total 0.5 mg/dL (0.00-1.00); Blood Urea Nitrogen 18 mg/dL (7-18); Carbon Dioxide 29 mmol/L (21-32); Chloride 97 mmol/L (98-108); Estimated Glomerular Filt Rate 56; Glucose 111 mg/dL (70-99); Osmolality Calculated 274 mOsm/kg (285-295); Potassium 3.7 mmol/L (3.5-5.1); Sodium 131 mmol/L (136-145); Total Protein 6.6 g/dL (6.4-8.2)
== END 2024-08-29 07:11 | disposition home or self-care (01) ==
LOC: CHSLAB 07:12
PROVIDERS: PCP Internal Medicine; Visit Provider Internal Medicine Pulmonary Disease
DX: J43.9 Emphysema, unspecified (principal); J44.9 Chronic obstructive pulmonary disease, unspecified; Z95.5 Presence of coronary angioplasty implant and graft
CPT/HCPCS: 36415; 80053; 85025

== ENCOUNTER 2024-10-17 07:24 | Outpatient (CLI) | payer MEDICARE, OTHER, SELFPAY ==
[2024-10-17 07:40] LABS: Basophils Absolute Auto 0.11 K/mm3 (0.00-0.10); Basophils Percent Auto 1.1 % (0.0-1.0); Hematocrit 38.7 % (40.0-54.0); Hemoglobin 12.4 g/dL (14.0-18.0); Immature Granulocyte Absolute 0.03 K/mm3 (0.00-0.00); Immature Granulocyte Percent A 0.3 % (0.0-0.0); Lymphocytes Absolute Auto 2.37 K/mm3 (1.10-4.50); Lymphocytes Percent Auto 23.8 % (18.0-42.0); Mean Corpuscular Hemoglobin 27.6 pg (27.0-31.0); Mean Platelet Volume 9.7 fl (8.7-11.0); Monocytes Absolute Auto 0.84 K/mm3 (0.10-0.90); Monocytes Percent Auto 8.4 % (2.0-11.0); Neutrophils Absolute Auto 6.42 K/mm3 (1.70-7.20); Neutrophils Percent Auto 64.4 % (50.0-70.0); Platelet Count Result 292 K/mm3 (150-420); Red Cell Distribution Width 15.1 % (11.6-14.4)
[2024-10-17 08:14] LABS: Alanine Aminotransferase 31 U/L (6-50); Albumin Level 4.2 g/dL (3.5-5.1); Alkaline Phosphatase 89 U/L (38-126); Anion Gap 6 mmol/L (4-12); Aspartate Amino Transferase 35 U/L (17-59); Bilirubin,Total 0.7 mg/dL (0.2-1.3); Blood Urea Nitrogen 20 mg/dL (9-20); Calcium 9.3 mg/dL (8.4-10.2); Carbon Dioxide 24 mmol/L (22-30); Chloride 107 mmol/L (98-107); Estimated Glomerular Filt Rate 54; Glucose 111 mg/dL (65-110); Osmolality Calculated 287 mOsm/kg (285-295); Potassium 4.6 mmol/L (3.4-5.0); Sodium 137 mmol/L (137-145); Total Protein 6.7 g/dL (6.3-8.2)
== END 2024-10-17 07:25 | disposition home or self-care (01) ==
LOC: CHSLAB 07:28
PROVIDERS: PCP Internal Medicine; Visit Provider Nuclear Medicine Nuclear Cardiology
DX: J44.9 Chronic obstructive pulmonary disease, unspecified (principal); Z79.899 Other long term (current) drug therapy; I10 Essential (primary) hypertension
CPT/HCPCS: 36415; 80053; 85025

== ENCOUNTER 2025-03-18 08:14 | Outpatient (CLI) | payer MEDICARE, SELFPAY ==
--- NOTE | ~2025-03-18 | CT_ITS ---
EXAMINATION:CT diagnostic chest wo con DATE: 03/18/2025 08:45 INDICATION: Emphysema. Chronic obstructive pulmonary disease. TECHNIQUE: Computed tomography (CT) of the chest was performed without intravenous contrast. Automated exposure control and iterative reconstruction technique were employed. The dose-length product (DLP) was 295.96 mGy-cm. COMPARISON: Chest CT 02/05/2024 FINDINGS: There is mild scarring at the lung apices. There is moderate emphysema. There is chronic peripheral septal thickening in the lungs. No bronchiectasis. A calcified right lung nodule and calcified right hilar and mediastinal lymph nodes are consistent with old granulomatous disease. There is chronic thickening of minor fissure. No pleural effusion. The heart size is normal. There are coronary artery calcifications. No pericardial effusion. There are changes of cholecystectomy. Calcifications in the spleen are consistent with old granulomatous disease. There is mild thoracic spondylosis. There are bridging endplate osteophytes at multiple levels in the spine, consistent with diffuse idiopathic skeletal hyperostosis (DISH). IMPRESSION: 1. Stable diffuse lung disease, likely a combination of moderate emphysema and chronic interstitial lung disease in a pattern of usual interstitial pneumonia (UIP). Reviewed, dictated and finalized at location E.
--- OUTSIDE RECORDS SUMMARY | 2025-03-18 08:28 | XMS_ITS | Patient Health Record ---
Author Organization [facility] Address [address] [place], [place] [id number] Support Name Relationship Address Phone KURT ANGULO Guarantor Unknown Reason For Referral No Information Plan Of Treatment No Information Insurance Providers Payer Name Payer Address Payer Phone Subscriber Number Group Number Insured Name Patient Relationship to Insured Coverage Start Date [facility]age End Date [facility] [address] [place], [place] [id number] KURT BECK Self - patient is the insured
--- NOTE | 2025-03-20 14:15 | WPDPFTINT ---
PFT Procedure Performed PFT Procedure Performed Spirometry with Pre/Post Bronchodilator Plethysmography (Lung Vol) Diffusing Cap (DLCO) Flow Vol Loop PFT Interpretation DOS: 03/18/2025 REQUESTING: Karli Aguilera MD REASON FOR TESTING: pulmonary fibrosis/ COPD PULMONARY FUNCTION TESTS Results are reliable and reproducible. Repeatability of spirometry FEV1 maneuver pre and post bronchodilator is Grade A. Farhat [employer] Dust reference equations were used. Spirometry: The pre-bronchodilator FEV1 is 2.40, 78%. The pre-bronchodilator FVC is 3.80, 97%. The FEV1/FVC ratio is 63%, reduced. After bronchodilator, the FEV1 is 2.52 L, 82%, +5%. The post-bronchodilator FVC is 3.78 L, 96%, no change. The FEV1/FVC ratio is 67%. Lung volumes: The total lung capacity is 5.71 L, 93%, normal. The functional residual capacity is 3.22 L, 103%, normal. The residual volume is 1.90 L, 83%, normal. The RV/TLC is 33%. Airway resistance is increased. Diffusion: DLCO is 11.4, 47%, moderately reduced. The DLCO/VA is 2.16, 57%, remains moderately reduced. Flow volume loop: The flow volume loop shows coving of the expiratory limb. IMPRESSION: This study shows a mild obstructive ventilatory impairment without response to bronchodilator, normal lung volumes, and a moderate diffusion impairment with partial correction for alveolar volume. Compared to a prior study 02/05/2024, there has been a greater than expected decrease in the FEV1, previously was 2.72 L, 88% now is 2.40 L, 78%. the FVC is has decreased, was 4.43 L 112% now 3.8 L, 97%. there was no statistical change after bronchodilator. TLC was 6.59 L, 107%, now 5.71 L, 93% however it is significantly reduced compared to last year. DLCO was 13.8, 57% now 11.4, 47% with partial correction for alveolar volume. Cortney Oropeza MD
== END 2025-03-18 08:15 | disposition home or self-care (01) ==
PROVIDERS: PCP Internal Medicine; Visit Provider Internal Medicine Pulmonary Disease
DX: J44.9 Chronic obstructive pulmonary disease, unspecified (principal); Z79.899 Other long term (current) drug therapy
CPT/HCPCS: 71250; 94060; 94726; 94729